=== PATIENT | female | born 1950 | race Caucasian/White ===

== ENCOUNTER → 2017-08-10 12:13 | Outpatient (CLI) | payer MEDICARE, SELFPAY ==
--- NOTE | 2017-08-10 12:30 | RAD_ITS ---
STUDY: X-RAY - LUMBAR SPINE REASON FOR EXAM: Female, 66 years old. Low back pain TECHNIQUE: 5 view(s) of the lumbar spine were obtained. COMPARISON: 2013 FINDINGS: Normal lumbar lordosis. There is no substantial scoliosis. There is a normal alignment of the vertebrae. There is diffuse demineralization with multi-level endplate spondylosis. There is multi-level degenerative disc disease with multi-level disc space narrowing. There is no demonstrated fracture. No evidence of previous tubal ligation RAD/L/S Spine Min 4 Views IMPRESSION: Degenerative changes of the spine, as detailed above. Electronically Signed: Feliz Kelly MD at 8:33 EDT , Service support ,
== END ==
PROVIDERS: Family Provider Family Medicine; PCP Family Medicine; Visit Provider Nurse Practitioner Family
DX: M51.36 Other intervertebral disc degeneration, lumbar region (principal); M48.061 Spinal stenosis, lumbar region without neurogenic claudication; M54.9 Dorsalgia, unspecified
CPT/HCPCS: 72110

== ENCOUNTER → 2017-09-26 10:58 | Outpatient (CLI) | payer MEDICARE, SELFPAY ==
--- NOTE | 2017-09-26 11:20 | RAD_ITS ---
STUDY: X-RAY - PELVIS AND RIGHT HIP REASON FOR EXAM: Female, 67 years old. Injury. Worsening right hip pain. TECHNIQUE: Radiological exam, hip, unilateral, with pelvis when performed; 2 or 3 views. COMPARISON: Right hip, April 10, 2014. FINDINGS: There is a non-specific bowel gas pattern. Normal visualized soft tissue structures. There is surgical clips in the pelvis consistent with tubal ligation. Phleboliths are noted. Normal bilateral iliac wings, sacroiliac joints and visualized sacrum. Normal bilateral superior and inferior pubic rami. Normal pubic symphysis. Normal bilateral ischial tuberosities. Normal visualized right femoral head. There is osteoarthritic spur formation of the right acetabular rim. There is mild articular joint space narrowing of the right hip. RAD/Hip 2-3 Views with Pelvis IMPRESSION: Stable degenerative changes of the right hip when compared to April 10, 2014. Electronically Signed: Dylon Goins DO at 17:05 EDT Tel [phone], Service support ,
== END ==
PROVIDERS: Family Provider Family Medicine; PCP Family Medicine; Visit Provider Nurse Practitioner Family
DX: M25.551 Pain in right hip (principal)
CPT/HCPCS: 73502

== ENCOUNTER 2018-09-17 17:21 | Emergency (ER) | payer MEDICARE, SELFPAY ==
[2018-09-17 17:22] VITALS: BP 151/115; PULSE 115; RESP 16; TEMP 36.7; O2SAT 97; BMI 30.9
--- NOTE | 2018-09-17 17:37 | CT_ITS ---
STUDY: CT ABDOMEN AND PELVIS WITH CONTRAST REASON FOR EXAM: Female, 68 years old. Cramping for 4 days. RADIATION DOSAGE (If Supplied By Facility): CTDIvol = ( 15.19 ) mGy, DLP = ( 1111.33 ) mGycm TECHNIQUE: Transaxial images were obtained from the dome of the diaphragm to the symphysis pubis without oral contrast. 100 IV Isovue 300 was administered. Sagittal and coronal images were reconstructed. Individualized dose optimization techniques were used for this CT. COMPARISON: None. FINDINGS: The visualized lung bases are unremarkable. The visualized portions of the heart are within normal limits. Scattered calcified granulomata of the liver is noted. Normal gallbladder and extrahepatic biliary system. There is a benign calcified granuloma of the spleen. Normal pancreas. Normal bilateral adrenal glands. Normal right kidney. Normal left kidney. Normal visualized stomach. There is noted hyperemia and mild dilatation of the central small bowel areas of wall thickening and surrounding inflammatory stranding as seen on coronal series 601 image 44. Normal colon. The appendix is visualized and appears normal. Normal abdominal aorta. Normal inferior vena cava. Normal retroperitoneum. Normal urinary bladder. There is atrophy of the uterus. There is a small umbilical hernia containing fat. There are diffuse degenerative changes of the visualized lumbar spine. CT/Abdomen/Pelvis W IV Cont ONLY IMPRESSION: 1. Central small bowel mild dilatation, hyperemia and wall thickening with surrounding fluid layering consistent with underlying inflammatory process with enteritis not excluded. No evidence of vascular compromise or bowel wall emphysema to suggest ischemia. Component of inflammatory bowel syndrome is also a consideration, clinically correlate. No evidence of acute obstruction. Electronically Signed: Miguelito Esparza DO at 20:07 EDT , Service support ,
--- NOTE | 2018-09-17 17:38 | ED.VISSUMM ---
- ER Visit Summary Date of Service: 09/17/18 Chief Complaint: Abdominal pain History of Present Illness: The patient is a 68 F who presents with abdominal pain. Is been ongoing for 3 days. She describes a continuous cramping in her abdomen diffusely. Is worse on the right side. She has nausea without vomiting. She is also had a lot of diarrhea associated with this. She describes them as loose stools. Denies urinary symptoms. She is supposed to have a colonoscopy on Tuesday with Dr. Curtis. This is for screening purposes only. She denies any fevers. No history of abdominal surgeries. Physical Examination: Vital signs reviewed. HEENT exam unremarkable. Heart is tachycardic and regular rhythm without murmurs. Lungs are clear to auscultation. Abdomen is soft with right-sided tenderness. There is no guarding or rebound tenderness. Extremities reveal no edema. Skin exam normal. Neurologic exam normal. Test Results: Laboratory studies are normal except for creatinine 1.17, alkaline phosphatase of 126. CT scan of the abdomen pelvis with IV contrast shows mild small bowel dilatation with an enteritis being in the differential. Emergency Department Course and Treatment: Patient was given morphine and Zofran and feels much better. Feel that her clinical symptoms and CAT scan are consistent with a gastroenteritis. I do not feel that this is an inflammatory bowel disease. Patient will be given Bentyl and Zofran ODT for home. She will need to call tomorrow and see if they would still would like to do her colonoscopy on Tuesday. Treatment Plan: [] Disposition: Discharge Impression: Gastroenteritis This note was generated with [employer] dictation software. It may contain incorrect words, spelling, and punctuation that were not noted in review of the chart prior to signing ED Disposition - Plan for ED Patient: Referrals: Luiz Gomez DO [Primary Care Provider] -
[2018-09-17] MEDS: 0.9% Normal Saline 1,000 ML 1000 ML IV (17:58)
[2018-09-17] MEDS: Ondansetron 4 MG/2 ML Vial IV (17:58)
[2018-09-17] MEDS: Morphine 4 MG/ML Syringe IV (17:58)
[2018-09-17 17:59] LABS: Absolute Lymphocyte Count 1.07 X10^3/ul (0.83-4.51); Absolute Neutrophil Count 5.1 X10^3/uL (2.0-7.7); Eosinophil# 0.08 X10^3/uL; Eosinophils% 1.2 % (0-5); Lymphocyte # 1.07 X10^3/ul (4.0); Lymphocyte % 16.1 % (19-41); Mean Corpuscular Hgb 34.1 pg (27.0-32.0); Mean Corpuscular Volume 100.2 fL (81-99); Mean Platelet Vol. 10.3 fl (6.2-12.0); Monocyte# 0.42 X10^3/uL; Monocyte% 6.3 % (0-10); Neutrophil # 5.06 X10^3/uL (2.7-7.7); Neutrophil % 76.4 % (47-70); POSITIVE COUNT NO; POSITIVE DIFFERENTIAL NO; POSITIVE MORPHOLOGY NO; Platelet Count 247 K/mm3 (150-450); RBC Distribution Width CV 12.8 % (11.6-14.6); RBC Distribution Width SD 46.3 fl (35.1-43.9); Red Blood Count 4.69 M/mm3 (4.2-5.4); White Blood Count 6.6 K/mm3 (4.4-11.0)
[2018-09-17 18:16] LABS: AST(SGOT) 9 U/L (15-37); Alanine Aminotransfer ALT/SGPT 15 U/L (13-56); Albumin, Serum 3.9 g/dL (3.2-5.0); Alkaline Phosphatase 126 U/L (45-117); Anion Gap 9 (5-15); BUN 15 mg/dL (7-18); BUN/Creat Ratio 12.8 RATIO (10-20); Bilirubin, Direct 0.14 mg/dL (0.00-0.30); Calcium,Total 9.4 mg/dL (8.5-10.1); Chloride 106 mmol/L (98-107); Creatinine, Serum 1.17 mg/dL (0.55-1.02); EST Glomerular Filtration Rate 49 mL/min (>60); Est Glom Filt Rate - Afr Amer 60 mL/min (>60); Estimated Creatinine Clearance 42.56 ml/min; Globulin 3.2 g/dL (2.2-4.2); Glucose 97 mg/dL (74-106); Lipase 76 U/L (73-393); Potassium 4.1 mmol/L (3.5-5.1); Protein, Total 7.1 g/dL (6.4-8.2); Sodium Level 142 mmol/L (136-145)
[2018-09-17 18:24] VITALS: BP 142/94; PULSE 96; RESP 16; TEMP 36.6; O2SAT 92
--- NOTE | 2018-09-17 20:16 | ED.DEP ---
ED Disposition - Plan for ED Patient: Disposition: Home or Assisted Living Instructions: ED Gastroenteritis Non Infec Prescriptions: Ondansetron [Zofran Odt] 4 mg PO Q8H PRN PRN #10 tab PRN Reason: Nausea Dicyclomine HCl [Bentyl] 20 mg PO TIDAC #20 cap Referrals: Luiz Gomez DO [Primary Care Provider] -
[2018-09-17 20:37] VITALS: RESP 18
== END 2018-09-17 20:38 | disposition home or self-care (01) ==
PROVIDERS: Emergency Provider Emergency Medicine; Family Provider Family Medicine; PCP Family Medicine
DX: K52.9 Noninfective gastroenteritis and colitis, unspecified (principal)
CPT/HCPCS: 74177; 80048; 80076; 83690; 85025; 96361; 96374; 96375; 99283; J7030; Q9967; A4216; J2405

== ENCOUNTER → 2018-09-19 13:21 | Outpatient (CLI) | payer MEDICARE, SELFPAY ==
[2018-09-19 12:44] VITALS: BMI 30.9
[2018-09-19 13:45] LABS: Erythrocyte Sedimentation Rate 4 mm/hr (0-30)
[2018-09-19 13:48] LABS: Absolute Lymphocyte Count 0.95 X10^3/ul (0.83-4.51); Absolute Neutrophil Count 3.3 X10^3/uL (2.0-7.7); Basophil# 0.01 X10^3/uL; Basophil% 0.2 % (0-1); Eosinophil# 0.06 X10^3/uL; Eosinophils% 1.3 % (0-5); Hematocrit 43.9 % (37-47); Hemoglobin 14.9 g/dl (12.0-15.0); Lymphocyte # 0.95 X10^3/ul (4.0); Lymphocyte % 20.1 % (19-41); Mean Corp Hgb Conc 33.9 g/gl (32-36); Mean Corpuscular Hgb 33.9 pg (27.0-32.0); Mean Corpuscular Volume 99.8 fL (81-99); Mean Platelet Vol. 10.2 fl (6.2-12.0); Monocyte# 0.39 X10^3/uL; Monocyte% 8.3 % (0-10); Neutrophil # 3.31 X10^3/uL (2.7-7.7); Neutrophil % 70.1 % (47-70); Platelet Count 236 K/mm3 (150-450); RBC Distribution Width CV 12.5 % (11.6-14.6); White Blood Count 4.7 K/mm3 (4.4-11.0)
[2018-09-19 13:51] LABS: POSITIVE COUNT NO; POSITIVE DIFFERENTIAL NO; POSITIVE MORPHOLOGY NO
== END ==
PROVIDERS: Family Provider Family Medicine; PCP Family Medicine; Visit Provider Surgery
DX: R19.7 Diarrhea, unspecified (principal)
CPT/HCPCS: 36415; 85025; 85652; 86140

== ENCOUNTER → 2018-09-20 | Outpatient (CLI) | payer MEDICARE, SELFPAY ==
[2018-09-19 12:44] VITALS: BMI 30.9
== END | disposition home or self-care (01) ==
LOC: PAVLAB 15:28
PROVIDERS: Family Provider Family Medicine; PCP Family Medicine; Visit Provider Surgery
DX: A04.72 Enterocolitis due to Clostridium difficile, not specified as recurrent (principal); R19.7 Diarrhea, unspecified
CPT/HCPCS: 82274; 83630; 87177; 87209; 87493; 87506

== ENCOUNTER 2018-10-10 05:58 | Day surgery (SDC) | payer MEDICARE, SELFPAY ==
[2018-09-19 12:44] VITALS: BMI 30.9
--- NOTE | 2018-10-09 06:33 | HP.PCM_ITS ---
Problem List (1) Screening for intestinal cancer Status: Acute History and Physical Date of Admission: 10/10/18 68-year-old female. Earlier in September she was scheduled to have a screening colonoscopy. Just prior to that intended date however on September 17, 2018 she presented to the emergency room with profuse severe diarrhea. The following note highlights that process. 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 Is patient in pain?: Yes (RUQ abd) Pain scale (1-10): 8 Allergies No Known Allergies Allergy (Verified 09/19/18 12:44) Medications Dicyclomine HCl [Bentyl] 20 mg PO TIDAC #20 cap 09/17/18 [Rx Confirmed 09/19/18] Ondansetron [Zofran Odt] 4 mg PO Q8H PRN PRN #10 tab 09/17/18 [Rx Confirmed 09/19/18] PFSH Medical History Arthritis (Acute) Back problem (Acute) Nausea & vomiting (Acute) Surgical History S/P nasal polypectomy (Acute) Family History Mother Colon cancer Social History Smoking Status: Never smoker alcohol intake: current alcohol intake frequency: a few times a month HPI HPI HPI: JERMAIN ROBLES, is a 68 F who presents to the office today for surgical consultation regarding intractable diarrhea. The patient is referred via the emergency room and her primary care is Dr. Luiz Gomez and a written copy of my surgical consult recommendations will return to them. 58-year-old female presented to the emergency room on September 17, 2018. She had had a 3-day history of profuse severe diarrhea with sharp abdominal crampy pain. She was diagnosed there with viral gastritis. No stool mass was obtained. Her white count was 6.6 with a hemoglobin elevated at 16 hematocrit 47 platelet count 247,000 with 76% neutrophils. CT scan was obtained suggesting central small bowel dilatation hyperemia and wall thickening suggesting underlying inflammatory process and enteritis is not excluded. Clinical correlation for a possible inflammatory bowel syndrome. The patient states that her abdominal pain is somewhat improved but that she is still quite symptomatic. It is of note that she was supposed to be scheduled today for routine outpatient open access screening colonoscopy. Her diet has m arkedly diminished. She feels like she is getting enough fluid. She claims her stool is dark. She had a colonoscopy 5 years ago which by her report was unremarkable. She has a family history with a mother who had colon cancer. HPI HPI HPI: JERMAIN ROBLES, is a 68 F who presents to the office today for ROS General General: Yes weight change; no appetite, fatigue, colon cancer, breast cancer or weakness HEENT HEENT: No difficulty swallowing, eye injury, eye surgery, swollen glands or hoar seness Endo Endocrine: No thyroid disease, diabetes mellitus, thyroid cancer, Hair loss, heat intolerance or cold intolerance Skin Skin: No rash or changing moles Breast Breast: No left breast lump, right breast lump, nipple discharge, breast pain, abnormal mammogram, abnormal US or breast enlargement Musc Musculoskeletal: Yes back problems and arthritis; no rheumatoid arthritis, gout or joint pain Cardio Cardiovascular: No murmur, pacemaker, heart disease, atrial fibrillation, high blood pressure, heart attack, heart stent, palpitations, shortness of breat with exertion or chest pain Psych Psychiatric: No depression, anxiety or hearing voices Resp Respiratory: No shortness of breath, No sleep apnea, No cough, No COPD, No asthma, No emphysema, No wheezing Gastro Gastrointestinal: Yes abdominal pain, Yes nausea or vomiting, Yes diarrhea, No constipation, No blood in stool, No acid reflux, No hemorrhoids, No ulcers, No gallbladder problem, No black,tarry stools Kody Hematologic: No blood thinners, No blood disorders, No bleeding, No anemia, No blood clots Neuro Neurologic: No system reviewed and no additional complaints, except as docu, No as per HPI, No abnormal walking, No abnormal hearing, No abnormal movements, No abnormal speech, No behavioral changes, No burning sensations, No confusion, No seizure-like activity, No unsteadiness, No dizziness, No localized weakness, No frequent falls, No headache(s), No lack of coordination, No loss of vision, No memory loss, Yes numbness, No other visual disturbances, No radiating pain, No restless legs, No sensory deficit, No fainting, Yes tingling, No tremor(s), No weakness, No other Exam Const General: cooperative, healthy appearing, no acute distress Nutritional Appearance: obese Orientation: alert, awake, oriented x3 HENMT Head: normal to inspection Chest Breast Palpation: No nipple discharge Resp Effort & Inspection: normal respiratory effort Auscultation: clear to auscultation bilaterally Cardio Rate: regular rate Rhythm: regular rhythm Heart Sounds: no murmurs GI Palpation: soft, no hepatosplenomegaly Auscultation: normal bowel sounds Other: Distended, tender to palpation particularly right mid abdomen with mild guarding, no rebound Neuro Cognition: normal cognition Extrem General: no calf tenderness bilaterally Psych Affect: normal affect Assessment & Plan Problems 1. Generalized abdominal pain R10.84 2. Diarrhea, unspecified type R19.7 Plan The source of this patient's abdominal pain diarrhea is unexplained. She was hemoconcentrated on her ER visit. I have explained to the patient and her the significant importance of increasing her fluid intake. I have discussed electrolyte balance solutions. I suggested that she consider taking Ensure clear. This point I do not want to proceed with a bowel prep and colonoscopy. She did not have stool checked for analysis. I believe it is important to check a stool for O&P culture and sensitivity and C. difficile. I also recommend that we obtain a sed rate and a CRP. The patient does not have any family history of inflammatory bowel disease. Colonoscopy will be deferred at the moment. The patient will provide us daily updates as we work our way through the diagnostic process. She is instructed that if this is indeed a viral gastroenteritis it simply will need time to resolve. If we detect other than we can treat appropriately. We will continue with her care. I appreciate the opportunity of assisting with her surgical management CC: Dr. Luiz Curtis M.D., F.A.C.S. Orders Orders: CBC W/Diff, Automated Today R19.7 Erythrocyte Sed Rate Today R19.7 CRP Today R19.7 ENTERIC PATHOGEN PANEL STOOL Today A04.72, R19.7 Ova and Parasites Today R19.7 CDIFF (Molecular) Today R19.7 Stool Occult Blood iFOB Today R19.7 Stool Lactoferrin/WBC Today R19.7 Coding Level of Care Code Detailed, Low Diagnoses Generalized abdominal pain R10.84 ??Abdominal location: generalized Diarrhea, unspecified type R19.7 ??Diarrhea type: unspecified type 09/19/18 1323 <Electronically signed by Behzad Curtis MD> Date Behzad Curtis MD Cosigner Signature: Date (if applicable) CC: Luiz Gomez DO ~ Because of the profuse diarrhea she was hemoconcentrated rather actively dehydrated. The screening exam was postponed. As of September 20, 2018 stool analysis was unremarkable for routine enteric pathogens. She was positive for fecal WBC lactoferrin. C. difficile was negative. Stool occult blood was positive. She has a family history with a mother who had colon cancer. Her previous colonoscopy was July 13, 2013. Hemorrhoids were noted a tortuous colon and a 3 mm polyp was seen in the ascending colon. On biopsy this was simple lymphoid aggregates. With conservative measures she has improved from her episode of diarrhea. Was felt to have been viral in origin. She now presents in a much more stable condition. We will proceed with screening colonoscopy. She is aware of the technique, benefits, risks, alternatives. We will proceed as noted. Behzad Curtis M.D., F.A.C.S. 1 week ago weekend she was still having some right lower quadrant pain and irregular loose stools. But over the past week that is resolved. She has been able to tolerate her bowel prep. Her clinical examination today remains quite benign. We will proceed with planned colonoscopy. We will try to take a good evaluation of the ileocecal area and if possible terminal ileum. Behzad Curtis M.D., F.A.C.S.
[2018-10-10] VITALS (13 sets, daily range): BP systolic 66–140; BP diastolic 39–106; PULSE 76–94; RESP 14–16; TEMP 36.3–36.6; O2SAT 85–100; BMI 29.1
--- NOTE | 2018-10-10 07:00 | COLBX_PTH ---
PATIENT: JERMAIN ROBLES LOC: EN U#:[id number] AGE/SX: 68/F ROOM: RE10/10/[address]: Dr. Behzad Curtis MD : 1950 BED: DIS: 10/10/2018 SPEC #: [id number] RECD: 10/10/18 10:05 STATUS: RONNI AMBROSIO #: [id number] WILLIS: 10/10/18 07:[address]: Behzad Curtis DEPT: SURGICAL PATHOLOGY RECD BY: Patrick Phipps ENTERED: 10/10/18 10:35 SP TYPE: COLON BX OTHR DR: Dr. Luiz Gomez DO Tissues: COLON BIOPSY Procedures: Surgery Specimen Level IV HEADER OPERATION: Colonoscopy - open access (MOD) PRE-OP DIAGNOSIS: Screening TISSUE SUBMITTED: Random colonic biopsies MICROSCOPIC DIAGNOSIS Colon, random biopsy: Fragments of colonic mucosa, no pathologic diagnosis. SJ:joann 10/11/18 MICROSCOPIC DESCRIPTION Slides are reviewed. GROSS DESCRIPTION Received in fixative is one container labeled with the patient's name and designated random colon biopsy. The specimen consists of multiple irregular fragments of light friedman soft tissue that in aggregate measure 0.7 x 0.6 x 0.1 cm. The specimen is totally submitted in one cassette. / AM:joann 10/10/18 TC:4 CPT: 45912
--- NOTE | 2018-10-10 07:27 | OP.ENDO_ITS ---
10/10/2018 Luiz Gomez [address] [facility] [place] [address] Re : Colonoscopy procedure for Erica Akhtarh Dear Dr. Gomez This procedure was performed on Wednesday, October 10, 2018. My impressions and recommendations are as follows: Impressions : - Non-thrombosed external hemorrhoids, non-thrombosed internal hemorrhoids and internal hemorrhoids that prolapse with straining, but spontaneously regress to the resting position (Grade II) found on digital rectal exam. - Diverticulosis in the sigmoid colon and in the descending colon. - The examination was otherwise normal. - Biopsies were taken with a cold forceps from the entire colon for evaluation of microscopic colitis. The patient had to cancel a previous colonoscopy because of diarrhea felt to be small bowel enteritis. I was not able to canculate the terminal ileum secondary to patient discomfort. Random biopsies were taken of the colon to not miss this as a potential etiology to diarrhea. Recommendations : - Discharge patient to home. - Resume previous diet. - Continue present medications. - Telephone my office for pathology results in 1 week. - Repeat colonoscopy in 5 years for surveillance. I will encourage her to contact our office if her diarrhea recurrs or abdominal pain does not completely valentín. My findings are described in the full procedure note, which is enclosed. If I can be of further assistance, please feel free to contact me at Doctor phone number(s): Work: . Sincerely, Behzad Curtis MD 10/10/2018 7:27:01 AM This report has been signed electronically.
== END 2018-10-10 08:25 | disposition home or self-care (01) ==
LOC: EN 06:02 → AC 06:17
PROVIDERS: Family Provider Family Medicine; PCP Family Medicine; Referring Provider Surgery; Visit Provider Surgery
PROC: 0DJD8ZZ Inspection of Lower Intestinal Tract, Via Natural or Artificial Opening Endoscopic (ICD-10-PCS; CPT 45378; principal; 2018-10-10 06:55)
DX: Z12.11 Encounter for screening for malignant neoplasm of colon (principal); K64.1 Second degree hemorrhoids; K57.30 Diverticulosis of large intestine without perforation or abscess without bleeding; Z80.0 Family history of malignant neoplasm of digestive organs; M19.90 Unspecified osteoarthritis, unspecified site
CPT/HCPCS: G0105; 88305; 99152; 99153; J7120

== ENCOUNTER 2019-06-01 09:14 | Emergency (ER) | payer MEDICARE, SELFPAY ==
[2018-10-10 06:20] VITALS: BMI 29.1
[2019-06-01] VITALS (7 sets, daily range): BP systolic 134–171; BP diastolic 73–97; PULSE 59–73; RESP 14–20; TEMP 36.6; O2SAT 90–100; BMI 32.2
--- NOTE | 2019-06-01 09:21 | RAD_ITS ---
STUDY: X-RAY CHEST REASON FOR EXAM: Female, 68 years old. CP since last night TECHNIQUE: Single AP portable view of the chest. COMPARISON: None. FINDINGS: EKG electrodes are seen. The lungs are clear and expanded. There is no demonstrated pleural abnormality. Normal size heart. Normal mediastinum and sharon. Normal visualized pulmonary arteries. There is atherosclerotic tortuosity of the aortic arch and descending thoracic aorta. There are diffuse degenerative changes of the visualized thoracic spine. Normal visualized ribs, clavicles, and shoulders. There is no demonstrated abnormality of the visualized soft tissue structures of the upper abdomen. RAD/Chest 1 View (Portable) IMPRESSION: No acute abnormality is seen. Electronically Signed: Kenneth Hernández, at 9:53 EST , Service support ,
--- NOTE | 2019-06-01 09:21 | EKG12_ITS ---
Test Reason : REPEAT Blood Pressure : / mmHG Vent. Rate : 064 BPM Atrial Rate : 064 BPM P-R Int : 190 ms QRS Dur : 082 ms QT Int : 418 ms P-R-T Axes : 036 -01 030 degrees QTc Int : 431 ms Normal sinus rhythm Normal ECG Confirmed by JACQUELYN HUTCHINSON MD ([id number]), scientific publications editor KATIE ALEXANDER ([id number]) on 06/04/2019 12:12:59 PM Referred By: BARRY Confirmed By:JACQUELYN HUTCHINSON MD
--- NOTE | 2019-06-01 09:23 | ED.VIS.GEN ---
History of Present Illness Chief Complaint: Chest Pain Informant: Patient Onset: Yesterday Context: Gradual Onset Timing: Continuous Current Severity: Moderate Maximum Severity: Moderate Narrative: Patient presents with chest pain that radiates through to her back. Patient states the pain started last evening. She had difficulty finding a position of comfort last night. She actually points to the epigastric region and describing the area of pain. She tried taking an antacid pill along with Pepto last night without improvement. She denies shortness of breath or cough. She has no known cardiac history. She denies history of pancreatitis. - Past Medical History (1) GERD (gastroesophageal reflux disease) Status: Chronic (2) Arthritis Status: Chronic Past Medical History - Allergies and Home Meds Allergies/Adverse Reactions: Allergies No Known Allergies Allergy (Verified 06/01/19 09:21) Primary Care Physician: Luiz Gomez DO [Primary Care Provider] - Prior records reviewed: Yes Lives: Spouse/ Significant Other Smoking Status: Never smoker Review of Systems General: Denies: Chills, Fever Eyes: Denies: Visual changes - bilaterally ENT: Denies: Bilateral ear pain Cardiovascular: Reports: Chest pain Respiratory: Denies: Dyspnea, Cough Gastrointestinal: Reports: Abdominal pain. Denies: Nausea, Vomiting, Diarrhea Genitourinary: Denies: Dysuria Musculoskeletal: Denies: Back pain, Extremity Pain Skin: Denies: Rash Neurological: Denies: Headache Hematologic: Denies: Easy bruising, Easy bleeding Allergy: Denies: Uticaria Physical Exam Vital Signs/Narrative: Vital Signs Temp Pulse Resp BP Pulse Ox 06/01/19 09:15 97.9 F 72 20 H 171/97 H 100 Inital Vital Signs reviewed: Yes General: Well nourished, Well developed Head: Normocephalic ENT: Moist mucous membranes Neck: Supple Cardiovascular: Regular rate, Regular rhythm Respiratory: No distress, CTA bilaterally Abdomen: Soft, Tender - Tenderness in the epigastric region., Hypoactive bowel sounds. Negative for: Guarding, Rebound tenderness Extremities: Nontender Skin: Normal color Neurological: Alert, Oriented x3 Psychological: Normal affect Diagnostic/Tx/Re-eval Impressions Chest X-Ray 06/01/19 09:21 IMPRESSION: No acute abnormality is seen. Electronically Signed: Kenneth Hernández, at 9:53 EST , Service support , 06/01/19 09:21 Chest 1 View (Portable) [RAD] Stat Laboratory Results 06/01/19 06/01/19 06/01/19 09:15 09:15 12:25 WBC 5.9 RBC 4.33 Hgb 14.5 Hct 42.7 MCV 98.6 MCH 33.5 H MCHC 34.0 RDW Std Deviation 42.7 RDW Coeff of Gertrudis 11.7 Plt Count 262 MPV 10.6 Immature Gran % (Auto) 0.300 Neut % (Auto) 67.8 Lymph % (Auto) 23.6 [place] % (Auto) 6.1 Eos % (Auto) 1.9 Baso % (Auto) 0.3 Absolute Neuts (auto) 4.0 Absolute Lymphs (auto) 1.39 Nucleated RBC % 0 Sodium 137 Potassium 4.1 Chloride 103 Carbon Dioxide 26.0 Anion Gap 8 BUN 21 H Creatinine 1.32 H Estim Creat Clear Calc 37.72 Est GFR (MDRD) Af Amer 52 L Est GFR (MDRD) Non-Af 43 L BUN/Creatinine Ratio 15.9 Glucose 118 H Calcium 9.1 Total Bilirubin 0.60 Direct Bilirubin 0.07 AST 14 L ALT 16 Alkaline Phosphatase 73 Troponin I < 0.015 < 0.015 Total Protein 7.5 Albumin 4.0 Globulin 3.5 Lipase 122 - EKG Initial EKG Interpretation: Sinus Rhythm - Sinus at 75 with no acute ischemia Follow-up EKG Interpretation: Sinus Rhythm - Sinus at 64 with no acute ischemia - Medical Decision Making Patient was initially given morphine and Zofran. On repeat evaluation she reported minimal improvement. Pain seems to continue to be localized in the epigastrium. She is given a GI cocktail, Protonix, and 0.5 mg of Dilaudid. On repeat evaluation she states that helped her pain. 3-hour rule out was obtained and repeat troponin and EKG are unremarkable. Patient be started on Protonix. She is known to Dr. Curtis and will follow up with him for a scope if she is not improving. ED Disposition - Plan for ED Patient: Disposition: Home or Assisted Living Diagnosis: Epigastric pain Instructions: EPIGASTRIC PAIN (Uncertain cause) Prescriptions: Pantoprazole Sodium [Protonix] 40 mg PO DAILY #30 tab Transmission Status: Pending to [id number] Referrals: Luiz Gomez DO [Primary Care Provider] - 1 Week
[2019-06-01] MEDS: Aspirin 325 MG Tablet PO (09:35)
[2019-06-01] MEDS: Ondansetron 4 MG/2 ML Vial IV (09:35)
[2019-06-01] MEDS: 0.9% Normal Saline 1,000 ML 150 ML IV (09:36)
[2019-06-01] MEDS: Morphine 4 MG/ML Syringe IV (09:36)
[2019-06-01 09:39] LABS: Absolute Lymphocyte Count 1.39 X10^3/uL (0.83-4.51); Basophil# 0.02 X10^3/uL; Basophil% 0.3 % (0-1); Eosinophil# 0.11 X10^3/uL; Eosinophils% 1.9 % (0-5); Hematocrit 42.7 % (37-47); Hemoglobin 14.5 g/dL (12.0-15.0); Lymphocyte # 1.39 X10^3/ul (4.0); Lymphocyte % 23.6 % (19-41); Mean Corpuscular Hgb 33.5 pg (27.0-32.0); Mean Corpuscular Volume 98.6 fL (81-99); Mean Platelet Vol. 10.6 fl (6.2-12.0); Monocyte# 0.36 X10^3/uL; Monocyte% 6.1 % (0-10); NRBC Flagged by Analyzer 0 % (0-5); Neutrophil % 67.8 % (47-70); Platelet Count 262 K/mm3 (150-450); RBC Distribution Width CV 11.7 % (11.6-14.6); RBC Distribution Width SD 42.7 fl (35.1-43.9); Red Blood Count 4.33 M/mm3 (4.2-5.4); White Blood Count 5.9 K/mm3 (4.4-11.0)
[2019-06-01 09:56] LABS: AST(SGOT) 14 U/L (15-37); Alanine Aminotransfer ALT/SGPT 16 U/L (13-56); Alkaline Phosphatase 73 U/L (45-117); Anion Gap 8 (5-15); BUN 21 mg/dL (7-18); BUN/Creat Ratio 15.9 RATIO (10-20); Bilirubin, Direct 0.07 mg/dL (0.00-0.30); Calcium,Total 9.1 mg/dL (8.5-10.1); Chloride 103 mmol/L (98-107); Creatinine, Serum 1.32 mg/dL (0.55-1.02); EST Glomerular Filtration Rate 43 mL/min (>60); Est Glom Filt Rate - Afr Amer 52 mL/min (>60); Estimated Creatinine Clearance 37.72 ml/min; Globulin 3.5 g/dL (2.2-4.2); Glucose 118 mg/dL (74-106); Lipase 122 U/L (73-393); Potassium 4.1 mmol/L (3.5-5.1); Protein, Total 7.5 g/dL (6.4-8.2); Sodium Level 137 mmol/L (136-145)
[2019-06-01] MEDS: Mag Hydrox/Al Hydrox/Simeth 30 ML UDC PO (10:36)
[2019-06-01] MEDS: HYDROmorphone 0.5 MG/0.5 ML SYRINGE IV ×2 (10:36→12:22)
--- NOTE | 2019-06-01 12:05 | EKG12_ITS ---
Test Reason : CP Blood Pressure : / mmHG Vent. Rate : 075 BPM Atrial Rate : 075 BPM P-R Int : 174 ms QRS Dur : 080 ms QT Int : 402 ms P-R-T Axes : 051 016 047 degrees QTc Int : 448 ms Normal sinus rhythm Normal ECG Confirmed by JACQUELYN HUTCHINSON MD ([id number]), sound editor KATIE ALEXANDER ([id number]) on 06/04/2019 12:13:12 PM Referred By: JAMES Confirmed By:JACQUELYN HUTCHINSON MD
== END 2019-06-01 13:48 | disposition home or self-care (01) ==
PROVIDERS: Emergency Provider Emergency Medicine; PCP Family Medicine
DX: R10.13 Epigastric pain (principal); K21.9 Gastro-esophageal reflux disease without esophagitis; M19.90 Unspecified osteoarthritis, unspecified site
CPT/HCPCS: 36415; 71045; 80048; 80076; 83690; 84484; 85025; 93005; 96361; 96365; 96375; 96376; 99284; J7030; A4216; J2405

== ENCOUNTER 2019-06-02 04:48 | Day surgery (SDC) | payer MEDICARE, SELFPAY ==
[2019-06-01 09:15] VITALS: BMI 32.2
[2019-06-02] VITALS (15 sets, daily range): BP systolic 104–154; BP diastolic 65–88; PULSE 77–97; RESP 16–21; TEMP 36.2–36.8; O2SAT 78–99; BMI 32.7
--- NOTE | 2019-06-02 04:59 | CT_ITS ---
ACR Level 3 findings have been noted. An addendum which confirms receipt of the report will follow. HISTORY: RIGHT SIDED FLANK PAIN TODAY. EPIGASTRIC PAIN YESTERDAY. SOME NAUSEA. CHEST PAIN, SOB. TECHNIQUE: Helically acquired images were obtained of the abdomen and pelvis without oral or IV contrast. A radiation dose optimization technique was used for this scan. COMPARISON: September 17, 2018 FINDINGS: # of images incl. paperwork: 474 LUNG BASES: Dependent basilar atelectasis. A bulla anteriorly within the left iliac/left iliac lingula adjacent to the heart Tiny bilateral pleural effusions. A tiny pericardial effusion. Minimal degenerative disc disease and some facet arthropathy within the lower lumbar spine CT abdomen: Some degenerative disc disease. 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 Series 2 image 42 suggests a possible cystic duct stone. On the coronal series this is series 601, image 50 The common bile duct is slightly prominent. Within the pancreatic head, I measure the diameter of the common bile duct to be 13 mm. No calcified choledocholithiasis is perceived within the common bile duct. Liver, spleen, pancreas, and adrenal glands are normal. The kidneys are normal. The aorta is normal. There is no intra-or extrahepatic biliary ductal dilatation. CT pelvis: No ascites is present. The the uterus is atrophic. Tubal ligation clips are present bilaterally. The ovaries are not enlarged. The appendix is normal. Series 2 image 123. The bladder is normal. Bowel gas pattern is normal. CT/Abdomen/Pelvis without Cont IMPRESSION: Acute cholecystitis with cholelithiasis and a calcified stone within the cystic duct measuring 4 mm, consistent with choledocholithiasis. Although the common bile duct is distended to 13 mm within the pancreas, no common bile duct gallstones are perceived. Individualized dose optimization techniques were used for this CT. at 0617 Reported and signed by: Darrel Sutton MD Electronically Signed: Darrel Sutton MD at 6:16 EST Tel , Service support ,
--- NOTE | 2019-06-02 05:00 | ED.VIS.GEN ---
History of Present Illness Chief Complaint: Abd Pain Informant: Patient Narrative: Stated she was seen yesterday in the emergency department for epigastric abdominal pain. Discharged on Protonix. Given a GI cocktail and narcotics in the department with good relief of symptoms. She had a negative cardiac work-up at that time as it was radiating to the chest. No over the last 9 hours she has had significant right-sided flank pain. Is a sharp stabbing pain. It seems to be rating from the epigastrium over to the right flank. No history of gallbladder stones. No previous abdominal surgeries. No vomiting or diarrhea. She has had some nausea with this. No blood in her urine. She is never had a kidney stone. Current severity is moderate. - Past Medical History (1) Abdominal pain Status: Acute (2) Diarrhea Status: Acute (3) Screening for intestinal cancer Status: Acute (4) Arthritis Status: Chronic (5) GERD (gastroesophageal reflux disease) Status: Chronic Past Medical History - Allergies and Home Meds Allergies/Adverse Reactions: Allergies No Known Allergies Allergy (Verified 06/02/19 04:49) Prior records reviewed: Yes Past Medical History: - - See problem list Surgical History: no surgical history Lives: With Family Smoking Status: Never smoker Alcohol: None Drugs: None Review of Systems General: Denies: Chills, Fever, Sweats Eyes: Denies: Visual changes - bilaterally, Diplopia ENT: Denies: Rhinorrhea, Sore throat Cardiovascular: Denies: Chest pain, Palpitations Respiratory: Denies: Dyspnea, Cough, Dyspnea on exertion Gastrointestinal: Reports: Abdominal pain, Nausea. Denies: Vomiting, Diarrhea, Melena, Hematochezia Genitourinary: Denies: Dysuria, Hematuria, Frequency Musculoskeletal: Denies: Back pain, Extremity Pain Skin: Denies: Rash, Wounds Neurological: Denies: Headache, Weakness, Numbness Physical Exam Vital Signs/Narrative: Vital Signs Temp Pulse Resp BP Pulse Ox 06/02/19 04:50 98.1 F 93 21 H 154/88 H 96 General: Well nourished, Well developed, No Acute Distress Head: Normocephalic, Atraumatic Eyes: Perrl, EOMI ENT: Moist mucous membranes, No rhinorrhea Neck: Supple, Nontender Cardiovascular: Regular rate, Regular rhythm, No murmurs Respiratory: No distress, CTA bilaterally, Chest nontender Abdomen: Soft, Nondistended, Normal bowel sounds, Tender - Tender in the right flank. Tender right upper quadrant epigastric. No Daniel sign. Negative for: Guarding, Rebound tenderness Back: Nontender, Normal Inspection Extremities: Nontender, No edema Skin: Normal color, No rash Neurological: Alert, Oriented x3, Cranial nerves II-XII grossly intact, Normal Strength, Normal Sensation Psychological: Normal affect, Normal Mood Diagnostic/Tx/Re-eval - Medical Decision Making Patient given IV Dilaudid and Zofran and IV fluids. Lab work and CT abdomen pelvis obtained. Lab work shows normal CBC. Liver function test showed elevated total bili only. Lipase negative. Electrolytes show no major abnormalities. CT abdomen pelvis shows cholecystitis with gallbladder stones noted. Common bile duct dilated without stone seen. Discussed with the surgeon on-call Dr. Rivera. Treat for cholecystitis with Zosyn. Patient feels significantly better after the above treatments. Will be admitted for definitive management.. Preoperative EKG shows normal sinus rhythm at a rate of 94 with no ischemia or arrhythmia ED Disposition - Plan for ED Patient: Disposition: Acute Care [facility] Diagnosis: Acute cholecystitis
[2019-06-02 05:05] LABS: Absolute Lymphocyte Count 0.87 X10^3/uL (0.83-4.51); Absolute Neutrophil Count 5.8 X10^3/uL (2.0-7.7); Basophil# 0.02 X10^3/uL; Basophil% 0.3 % (0-1); Eosinophil# 0.01 X10^3/uL; Eosinophils% 0.1 % (0-5); Hematocrit 41.9 % (37-47); Hemoglobin 14.4 g/dL (12.0-15.0); Lymphocyte # 0.87 X10^3/ul (4.0); Mean Corp Hgb Conc 34.4 g/dL (32-36); Mean Corpuscular Hgb 34.1 pg (27.0-32.0); Mean Corpuscular Volume 99.3 fL (81-99); Mean Platelet Vol. 10.1 fl (6.2-12.0); Monocyte# 0.57 X10^3/uL; Monocyte% 7.8 % (0-10); NRBC Flagged by Analyzer 0 % (0-5); Neutrophil # 5.78 X10^3/uL (2.7-7.7); Neutrophil % 79.5 % (47-70); Platelet Count 212 K/mm3 (150-450); RBC Distribution Width SD 43.8 fl (35.1-43.9); Red Blood Count 4.22 M/mm3 (4.2-5.4); White Blood Count 7.3 K/mm3 (4.4-11.0)
[2019-06-02] MEDS: 0.9% Normal Saline 1,000 ML 1000 ML IV (05:07)
[2019-06-02] MEDS: Ondansetron 4 MG/2 ML Vial IV (05:07)
[2019-06-02] MEDS: HYDROmorphone 1 MG/ML Syringe IV (05:07)
[2019-06-02 05:18] LABS: ALB/GLOB Ratio 1.2 RATIO (0.9-2.4); AST(SGOT) 12 U/L (15-37); Alanine Aminotransfer ALT/SGPT 19 U/L (13-56); Albumin, Serum 3.8 g/dL (3.2-5.0); Alkaline Phosphatase 77 U/L (45-117); Anion Gap 7 (5-15); BUN 11 mg/dL (7-18); BUN/Creat Ratio 8.9 RATIO (10-20); Calcium,Total 8.9 mg/dL (8.5-10.1); Chloride 103 mmol/L (98-107); Creatinine, Serum 1.23 mg/dL (0.55-1.02); EST Glomerular Filtration Rate 46 mL/min (>60); Est Glom Filt Rate - Afr Amer 56 mL/min (>60); Estimated Creatinine Clearance 40.48 ml/min; Globulin 3.3 g/dL (2.2-4.2); Glucose 138 mg/dL (74-106); Lipase 83 U/L (73-393); Potassium 3.9 mmol/L (3.5-5.1); Protein, Total 7.1 g/dL (6.4-8.2); Sodium Level 137 mmol/L (136-145)
[2019-06-02 05:47] LABS: Mucous, Urine 0 SEEN /hpf (<or=2+)
[2019-06-02 05:49] LABS: Color, Urine Yellow (Yellow); Glucose, Dipstick Normal (Normal); Ketone-Dipstick Negative (Negative); Leukocyte Esterase-Dipstick 100 /ul (Negative); Nitrite-Dipstick Negative (Negative); Occult Blood-Urine Negative /ul (Negative); Protein-Dipstick Negative (Negative); Specific Gravity, Urine 1.015 (1.002-1.030); Urine Bilirubin Dipstick Negative (Negative); Urine Clarity Clear (Clear); Urine Urobilinogen Normal (Normal)
[2019-06-02 05:59] LABS: Amorphous Sediment 1+; Bacteria 1+ /hpf (None Seen); Red Blood Cells-Urine 5-10 SEEN /hpf (0-5); Squamous Epithelial Cells - UA 0-5 SEEN /hpf (5-10); White Blood Cells 0-5 SEEN /hpf (0-5)
[2019-06-02 06:00] LABS: Yeast-Urine RARE /hpf (None Seen)
--- NOTE | 2019-06-02 06:21 | EKG12_ITS ---
Test Reason : ABD PAIN Blood Pressure : / mmHG Vent. Rate : 094 BPM Atrial Rate : 094 BPM P-R Int : 190 ms QRS Dur : 080 ms QT Int : 350 ms P-R-T Axes : 046 -04 015 degrees QTc Int : 437 ms Normal sinus rhythm Normal ECG Confirmed by JASPER DAILEY, JACQUELYN ([id number]), commercial production editor KATIE ALEXANDER ([id number]) on 06/04/2019 12:25:20 PM Referred By: Luiz Gomez Confirmed By:JACQUELYN HUTCHINSON MD
[2019-06-02 06:34] LABS: International Normalized Ratio 1.1; Prothrombin Time (Protime)PT. 13.7 SECONDS (11.7-14.9)
[2019-06-02 06:35] LABS: Partial Thromboplast Time 27.4 Seconds (24.1-36.2)
[2019-06-02] MEDS: Morphine 4 MG/ML Syringe IV (06:52)
--- NOTE | 2019-06-02 07:04 | HP.PCM_ITS ---
History of Present Illness Date of Admission: 06/02/19 The patient is a 68 year old F presented to the ER initially yesterday due to epigastric pain for about a day. Patient had normal labs at that time and was sent home. Treated with Protonix for possible reflux. Patient came back in early this morning due to epigastric/right upper quadrant pain. Patient states began about 4 AM patient had some nausea denies any vomiting has had normal bowel function and that ago. Patient denies any pain like this previously. CT abdomen pelvis was done which showed cholelithiasis along with small calcified stone looks to be in the cystic duct. The common bile duct does look to be a little dilated, LFTs were normal except for total bili of 1.3 barely elevated. Patient had a normal white blood cell count with a left shift. Patient was given Zosyn 4.5 g IV in the ER x1 for acute cholecystitis. Past Medical History Past Medical History (Chronic Problems): Chronic Problems (Last Reviewed 09/19/18 @ 12:43 by Ragini Thrasher) GERD (gastroesophageal reflux disease) (Chronic) Arthritis (Chronic) Medical History: Medical History (Last Reviewed 09/19/18 @ 12:43 by Ragini Thrasher) Diarrhea (Acute) R19.7 Arthritis M19.90 Back problem M53.9 Nausea & vomiting R11.2 Allergies No Known Allergies Allergy (Verified 06/02/19 04:49) Home Medications: Ambulatory Orders Medication Instructions Recorded Pantoprazole Sodium [Protonix] 40 mg PO DAILY #30 tab 06/01/19 Surgical History: Surgical History (Last Reviewed 09/19/18 @ 12:43 by Ragini Thrasher) S/P nasal polypectomy Z98.890 Surgical History: no surgical history Psychiatric History: No pertinent psych hx 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 Lives: With Family Smoking Status: Never smoker Alcohol: None Drugs: None - *Family History Maternal Family History: Family History (Last Updated 09/19/18 @ 12:43 by Ragini Thrasher) Mother Colon cancer History Items: No pertinent history Review of Systems Constitutional: Reports: Anorexia VTE Information - Inpt Only VTE Present on Admission: Yes VTE Mechan Device Prophylaxis: SCD's Patient Problems: Active and Suspected Problems (Last Reviewed 09/19/18 @ 12:43 by Ragini Thrasher) Acute cholecystitis (Acute) - Physical Exam Vitals/I&O's: Vital Signs Temp Pulse Resp BP Pulse Ox 98.1 F 93 21 H 154/88 H 78 06/02/19 04:50 06/02/19 04:50 06/02/19 04:50 06/02/19 04:50 06/02/19 05:49 Oxygen Delivery Method Room Air Weight: 196 lb 10.437 oz Body Mass Index (BMI) 32.7 Intake and Output for Last 24 Hours 05/31/19 06/01/19 06/02/19 23:59 23:59 23:59 Intake Total 1000 / 1000 Balance 1000 / 1000 General: Alert, Oriented x3, Cooperative HEENT: Atraumatic Lungs: Normal air movement Cardiovascular: Regular rate Abdomen: Soft, Non-Distended, Tender - Right upper quadrant, equivocal rebound, no guarding Extremities: No clubbing, No cyanosis, No edema Neurological: Cranial nerves II-XII grossly intact Psych/Mental Status: Normal Affect Laboratory Results 06/02/19 04:55: WBC 7.3, RBC 4.22, Hgb 14.4, Hct 41.9, MCV 99.3 H, MCH 34.1 H, MCHC 34.4, RDW Std Deviation 43.8, RDW Coeff of Gertrudis 12.0, Plt Count 212, MPV 10.1, Immature Gran % (Auto) 0.300, Neut % (Auto) 79.5 H, Lymph % (Auto) 12.0 L, Frontier % (Auto) 7.8, Eos % (Auto) 0.1, Baso % (Auto) 0.3, Absolute Neuts (auto) 5.8, Absolute Lymphs (auto) 0.87, Nucleated RBC % 0 06/02/19 04:55: Sodium 137, Potassium 3.9, Chloride 103, Carbon Dioxide 27.0, Anion Gap 7, BUN 11, Creatinine 1.23 H, Estim Creat Clear Calc 40.48, Est GFR (MDRD) Af Amer 56 L, Est GFR (MDRD) Non-Af 46 L, BUN/Creatinine Ratio 8.9 L, Glucose 138 H, Calcium 8.9, Total Bilirubin 1.30 H, AST 12 L, ALT 19, Alkaline Phosphatase 77, Total Protein 7.1, Albumin 3.8, Globulin 3.3, Albumin/Globulin Ratio 1.2, Lipase 83 06/02/19 04:55: PT 13.7, INR 1.1, APTT 27.4 06/02/19 05:40: Urine Color Yellow, Urine Clarity Clear, Urine pH 8.0, Ur Specific [place] 1.015, Urine Protein Negative, Urine Glucose (UA) Normal, Urine Ketones Negative, Urine Occult Blood Negative, Urine Nitrite Negative, Urine Bilirubin Negative, Urine Urobilinogen Normal, Ur Leukocyte Esterase 100 H, Urine RBC 5-10 SEEN, Urine WBC 0-5 SEEN, Ur Squamous Epith Cells 0-5 SEEN, Amorphous Sediment 1+, Urine Bacteria 1+, Urine Mucus 0 SEEN, Urine Yeast RARE Assessment/Plan All Active Problems (Last Reviewed 09/19/18 @ 12:43 by Ragini Thrasher) Screening for intestinal cancer (Acute) Acute cholecystitis (Acute) Diarrhea (Acute) Abdominal pain (Acute) 68-year-old female with acute acute cholecystitis/cholelithiasis Reviewed the anatomy with the patient and discussed the procedure: laparoscopic cholecystectomy with possible cholangiograms, possible open. Review risks including but not limited to bleeding, infection, hernia, bile leak, retained gallstones requiring another procedure ERCP- Endoscopic Retrograde Cholangiopancreatography, injury to another organ (bile ducts, common bile duct, small bowel, etc.) may require transfer to a tertiary care facility and conversion to an open procedure. All questions were answered, patient and her no further questions. We will go to the OR about 830 this morning. Roxi Rivera M.D. Pager: [phone] [facility] [address] [place] [address], [address] [place] [address] Office: [phone]
--- NOTE | 2019-06-02 08:11 | ED.RN ---
report given to surgery. pt tp or at this time.
--- NOTE | 2019-06-02 08:15 | RAD_ITS ---
History: Abdominal pain. Cholangiogram is COMPARISON: CT abdomen and pelvis same date TECHNIQUE: Intraoperative cholangiogram FINDINGS: Gallbladder is not clearly seen. There appears to mild dilation of common bile duct however, appropriate transition of injected contrast from the common bile duct into the small bowel. No evidence of significant intrahepatic ductal dilation. No evidence of filling defect IMPRESSION: As above. Please see performing physician''s report for further details. Electronically Signed: Reid Delgado DO at 11:01 EST Tel , Service support , RAD/Cholangiogram/ O R,Initial
--- NOTE | 2019-06-02 09:00 | GALL_PTH ---
PATIENT: JERMAIN ROBLES [place] [facility] [id number] AGE/SX: 68/F ROOM: RE06/02/[address]: Dr. Roxi Rivera MD : 1950 BED: DIS: 06/02/2019 SPEC #: [id number] RECD: 06/04/19 13:25 STATUS: RONNI AMBROSIO #: [id number] WILLIS: 06/02/19 09:[address]: Roxi Rivera DEPT: SURGICAL PATHOLOGY RECD BY: Patrick Phipps ENTERED: 06/04/19 14:50 SP TYPE: FLAKITO SEAMAN DR: Dr. Luiz Gomez, DO Tissues: Gallbladder, NOS Procedures: Surgery Specimen Level III HEADER OPERATION: Laparoscopic cholecystectomy with IOC PRE-OP DIAGNOSIS: Acute cholecystitis TISSUE SUBMITTED: Gallbladder MICROSCOPIC DIAGNOSIS Gallbladder, cholecystectomy: Acute and chronic ulcerated and hemorrhagic cholecystitis and cholelithiasis. SJ:joann 06/05/19 MICROSCOPIC DESCRIPTION Slides are reviewed. GROSS DESCRIPTION Received is one container labeled with the patient's name and designated gallbladder. The specimen consists of a gallbladder measuring 10 cm in length and up to 4 cm in diameter. The serosal surface is congested and hemorrhagic. The external surface is pink-friedman, smooth and glistening for the most part. Focally it is granular, hemorrhagic and contains cautery artifact. The gallbladder contains grayish, purulent, turbid bile and multiple brown irregular stones measuring in aggregate 3 x 2 x 0.5 cm and 0.3 to 0.5 in greatest dimension. The mucosa is bile-stained and without any mass lesions. The gallbladder wall measures up to 0.3 cm in thickness. Health Education Director sections from the gallbladder and the cystic duct are submitted in one cassette. / ALIZA:joann 06/04/19 TC:2 CPT: 46901
[2019-06-02] MEDS: Bupivacaine Mpf 0.5% 30 ML VIAL (09:54)
--- NOTE | 2019-06-02 09:56 | PCM.OPRPT ---
Report of Operation Date of Procedure: 06/02/19 Pre-Operative Diagnosis: Acute calculus cholecystitis Post-Operative Diagnosis: Same Surgery/Procedure Performed:: Laparoscopic cholecystectomy with cholangiograms property management supervisor: Merritt Salazar Type of Anesthesia:: General/Supplemental Anesthesiologist: Coby Hernandez Special Medications: Patient given Zosyn 4.5 g IV x1 for acute cholecystitis in the ER Specimen's removed: Gallbladder Estimated Blood Loss (mL): 40 cc Fluids Replaced: 1000 cc Description of Procedure: Indications this is a 68 year-old female who developed right upper quadrant abdominal pain/nausea and on workup was found to have cholelithiasis, acute cholecystitis, with a dilated common bile duct, normal LFTs except for a slight elevation of total bili at 1.3. Laparoscopic cholecystectomy was elected. Description procedure: The patient was placed on operating table in supine position. General Anesthesia was induced. A timeout was completed verifying correct patient, procedure, site, position and special equipment prior to beginning procedure. The abdomen was prepped and draped in usual sterile fashion. An incision was made in the natural skin line above the umbilicus. The fascia was elevated and incised. The peritoneum was elevated and incised. Entry into the peritoneum was confirmed visually and no bowel was noted in the vicinity of the incision. Ruiz trocar was placed. The abdomen was insufflated with carbon dioxide to a pressure of 12-15 mmHg. Patient tolerated insufflation well. The laparoscope was then inserted and abdomen inspected. No injuries from initial trocar placement were noted. Additional trochars were then inserted in the following locations 5 mm trocar in the epigastrium and 2 more 5 mm trochars along the right costal margin. The gallbladder was inflammed/irritated and distended/tense; otherwise there was no abnormalities in the abdomen were found. The table is placed in reverse Trendelenburg position with the right side up. The aspiration needle was used to decompress the gallbladder to allow the dome to be grasped. The adhesions between the gallbladder and omentum were lysed sharply. The dome of the gallbladder was grasped with atraumatic grasper passed through the lateral port and retracted over the dome of the liver. Infundibulum was then grasped with atraumatic grasper through the midclavicular port and retracted to the right lower quadrant. This maneuver exposed Calot's triangle. The peritoneum overlying the gallbladder infundibulum was then incised and cystic duct and artery identified and circumferentially dissected. Ranfac catheter was used for cholangiograms. The cholangiogram showed good filling of the dilated common bile duct into the duodenum with no filling defects, good filling of the right and left bile ducts as well. The cystic duct and artery were then doubly clipped and divided close to the gallbladder. The gallbladder then dissected from its peritoneal attachments by electrocautery. Hemostasis was checked and the gallbladder and contained stones were removed using the endoscopic retrieval bag through the umbilical port. The gallbladder is passed off table as specimen. The gallbladder fossa was copiously irrigated with saline and hemostasis obtained. There is no evidence of bleeding from the gallbladder fossa or cystic artery leakage of bile from the cystic duct stump. Secondary trochars removed under direct vision. No bleeding was noted the trocar sites. The laparoscope was withdrawn and umbilical trocar removed. The abdomen was allowed to collapse. The fascia of the 12 mm trocar was closed with a [id number] 0 Vicryl suture. The skin was closed with sutures of 4-0 Monocryl and Steri-Strips. The orogastric tube was removed and the patient was extubated. The patient tolerated procedure well and was taken to the postanesthesia care unit in stable condition. - Complications None - Admit VTE Documentation VTE Present on Admission: Yes VTE Mechan Device Prophylaxis: SCD's
[2019-06-02] MEDS: Lactated Ringers 1,000 ML 130 ML IV (10:10)
--- NOTE | 2019-06-02 10:11 | PCM.DC.GB ---
Discharge Diet: Light diet - advance as tolerated Discharge Activity: May not drive while taking narcotic pain medications. May shower in (days): 1 Lifting Restrictions: No lifting < 20 pounds x 3 weeks, no strenuous exercise for 5 wks Call your doctor if your incision/area has: Continuous Slow Oozing, Sudden Increased Bleeding, Increased Pain/ Swelling, Increased Redness, Foul Smelling Discharge, Swelling at the incision site Call your doctor if you observe: Fever of 101 or Higher Remove Dressing in (days):: 1 - Okay to remove op sites tomorrow, Steri-Strips and for 7 to 10 days for him follow-up in 10 days okay to remove Additional Instructions: Okay to take ibuprofen 400-600 mg PO q6hr PRN along with the Percocet. Avoid Tylenol since there is already Tylenol in the Percocet. Take all pain meds with food. Percocet can cause constipation recommend taking daily stool softener (i.e. Colace/docusate) while taking the pain meds. Recommend starting some MiraLAX in 1 to 2 days if no bowel movement. If still no bowel movement a day recommend taking magnesium citrate half the bottle and waiting 4-6 hours if still no results take the other half the bottle. Allergies/Adverse Reactions: Allergies No Known Allergies Allergy (Verified 06/02/19 04:49) Medications to take at Discharge Pantoprazole Sodium [Protonix] 40 mg PO DAILY #30 tab 06/01/19 Oxycodone HCl/Acetaminophen [Percocet 5/325] 1 - 2 tab PO Q6H PRN PRN 4 Days #25 tab 06/02/19 The following prescriptions were given: Oxycodone HCl/Acetaminophen [Percocet 5/325] 1 - 2 tab PO Q6H PRN PRN 4 Days #25 tab PRN Reason: Pain Transmission Status: Received by [id number] Primary Care Physician: Luiz Gomez DO [Primary Care Provider] - Test Results: Test results from this visit will be discussed in further detail at your follow-up appointment, if applicable. Please Follow Up With: Roxi Rivera MD - After 5 PM and on the weekends call [phone] with any concerns When: Call the office for a follow-up appointment in 2 weeks [phone] Proposed Discharge Date: 06/02/19
[2019-06-02] MEDS: Pantoprazole Sodium 40 MG Tablet PO (13:12)
== END 2019-06-02 15:30 | disposition home or self-care (01) ==
LOC: ED 06:30 → SDC 07:08 → MS3 09:22
PROVIDERS: Emergency Provider Emergency Medicine; PCP Family Medicine; Referring Provider Family Medicine; Visit Provider Surgery
PROC: (CPT 47610; principal; 2019-06-02 09:00)
DX: K80.12 Calculus of gallbladder with acute and chronic cholecystitis without obstruction (principal); M19.90 Unspecified osteoarthritis, unspecified site; K21.9 Gastro-esophageal reflux disease without esophagitis; Z79.899 Other long term (current) drug therapy
CPT/HCPCS: 00790; 47563; 74176; 74300; 76000; 80053; 81001; 83690; 85025; 85610; 85730; 88304; 93005; 99285; J7030; J7040; J7120; J1610; J2405

== ENCOUNTER → 2019-10-10 09:25 | Outpatient (CLI) | payer MEDICARE, SELFPAY ==
[2019-06-02 11:16] VITALS: BMI 32.7
[2019-10-10 12:41] LABS: Absolute Lymphocyte Count 1.36 X10^3/uL (0.83-4.51); Absolute Neutrophil Count 1.9 X10^3/uL (2.0-7.7); Basophil# 0.01 X10^3/uL; Basophil% 0.3 % (0-1); Eosinophil# 0.26 X10^3/uL; Eosinophils% 6.8 % (0-5); Hematocrit 42.9 % (37-47); Hemoglobin 13.9 g/dL (12.0-15.0); Lymphocyte # 1.36 X10^3/ul (4.0); Lymphocyte % 35.8 % (19-41); Mean Corp Hgb Conc 32.4 g/dL (32-36); Mean Corpuscular Hgb 33.5 pg (27.0-32.0); Mean Corpuscular Volume 103.4 fL (81-99); Mean Platelet Vol. 10.3 fl (6.2-12.0); Monocyte# 0.31 X10^3/uL; Monocyte% 8.2 % (0-10); NRBC Flagged by Analyzer 0 % (0-5); Neutrophil # 1.85 X10^3/uL (2.7-7.7); Neutrophil % 48.6 % (47-70); Platelet Count 211 K/mm3 (150-450); RBC Distribution Width CV 12.7 % (11.6-14.6); RBC Distribution Width SD 47.6 fl (35.1-43.9); Red Blood Count 4.15 M/mm3 (4.2-5.4); White Blood Count 3.8 K/mm3 (4.4-11.0)
[2019-10-10 12:44] LABS: ALB/GLOB Ratio 1.2 RATIO (0.9-2.4); AST(SGOT) 19 U/L (15-37); Alanine Aminotransfer ALT/SGPT 20 U/L (13-56); Albumin, Serum 3.7 g/dL (3.2-5.0); Alkaline Phosphatase 69 U/L (45-117); Anion Gap 8 (5-15); BUN 21 mg/dL (7-18); BUN/Creat Ratio 18.1 RATIO (10-20); Calcium,Total 8.8 mg/dL (8.5-10.1); Chloride 106 mmol/L (98-107); Cholesterol 265 mg/dL (200); Creatinine, Serum 1.16 mg/dL (0.55-1.02); EST Glomerular Filtration Rate 50 mL/min (>60); Est Glom Filt Rate - Afr Amer 60 mL/min (>60); Globulin 3.2 g/dL (2.2-4.2); Glucose 89 mg/dL (74-106); High Density Lipoprotein 59 mg/dL; Protein, Total 6.9 g/dL (6.4-8.2); Sodium Level 144 mmol/L (136-145); Triglycerides 99 mg/dL; Very Low Density Lipoprotein 20 mg/dL (5-40)
[2019-10-10 12:46] LABS: Vitamin D,25 Hydroxy 24.6 ng/mL
== END ==
PROVIDERS: PCP Family Medicine; Visit Provider Family Medicine
DX: E87.1 Hypo-osmolality and hyponatremia (principal); M85.80 Other specified disorders of bone density and structure, unspecified site; E78.5 Hyperlipidemia, unspecified; Z51.81 Encounter for therapeutic drug level monitoring
CPT/HCPCS: 36415; 80053; 80061; 82306; 85025

== ENCOUNTER → 2020-02-11 17:47 | Outpatient (CLI) | payer MEDICARE, SELFPAY ==
[2019-06-02 11:16] VITALS: BMI 32.7
== END ==
PROVIDERS: PCP Family Medicine; Referring Provider Family Medicine; Visit Provider Family Medicine
DX: Z20.828 Contact with and (suspected) exposure to other viral communicable diseases (principal)
CPT/HCPCS: 87635; C9803; U0003

== ENCOUNTER 2020-02-18 11:25 | Inpatient (IN) | payer MEDICARE, SELFPAY ==
[2019-06-02 11:16] VITALS: BMI 32.7
[2020-02-18] VITALS (9 sets, daily range): BP systolic 104–129; BP diastolic 73–76; PULSE 68–102; RESP 14–26; TEMP 36.4–36.9; O2SAT 93–98; BMI 28.7; BMI 29.7
--- NOTE | 2020-02-18 11:56 | EKG12_ITS ---
Test Reason : SOB Blood Pressure : / mmHG Vent. Rate : 089 BPM Atrial Rate : 089 BPM P-R Int : 184 ms QRS Dur : 078 ms QT Int : 360 ms P-R-T Axes : 047 013 037 degrees QTc Int : 438 ms Normal sinus rhythm Normal ECG Confirmed by JIMMY DAILEY, MIKA ([id number]), commissioning editor ALEJANDRO BOSWELL ([id number]) on 02/25/2020 8:39:18 A M Referred By: ESPERANZA/ÁNGEL Confirmed By:AYO MARQUEZ MD
--- NOTE | 2020-02-18 11:58 | ED.VIS.GEN ---
History of Present Illness Chief Complaint: Shortness of Breath Informant: Patient Narrative: 69-year-old female without significant past medical history presents with shortness of breath. Patient was diagnosed with coronavirus approximately 1 week ago. States over the past 2 to 3 days she has had worsening shortness of breath. Denies any chest pain, nausea, vomiting, diaphoresis. States that she does have myalgias. Denies any fevers at home. Patient was treated with a single dose of steroids by her primary care physician. Patient is not a current smoker. Past Medical History - Allergies and Home Meds Allergies/Adverse Reactions: Allergies No Known Allergies Allergy (Verified 06/02/19 04:49) Primary Care Physician: Luiz Gomez DO [Primary Care Provider] - Past Medical History: None Surgical History: no surgical history Lives: Spouse/ Significant Other Smoking Status: Never smoker Alcohol: None Drugs: None - Family History Maternal Family History: Family History (Last Updated 09/19/18 @ 12:43 by Ragini Thrasher) Mother Colon cancer Family History: Reports: No pertinent history Review of Systems General: Denies: Chills, Fever, Sweats Eyes: Denies: Visual changes - bilaterally, Diplopia ENT: Denies: Rhinorrhea, Sore throat Cardiovascular: Denies: Chest pain, Palpitations Respiratory: Reports: Dyspnea, Cough. Denies: Dyspnea on exertion Gastrointestinal: Denies: Abdominal pain, Nausea, Vomiting, Diarrhea, Melena, Hematochezia Genitourinary: Denies: Dysuria, Hematuria, Frequency Musculoskeletal: Denies: Back pain, Extremity Pain Skin: Denies: Rash, Wounds Neurological: Denies: Headache, Weakness, Numbness Physical Exam Vital Signs/Narrative: Vital Signs Temp Pulse Resp BP Pulse Ox 02/18/20 11:25 97.5 F L 102 H 26 H 104/73 93 General: Well nourished, Well developed, No Acute Distress Head: Normocephalic, Atraumatic Eyes: Perrl, EOMI ENT: Moist mucous membranes, No rhinorrhea Neck: Supple, Nontender Cardiovascular: Regular rate, Regular rhythm, No murmurs Respiratory: No distress, CTA bilaterally, Chest nontender Abdomen: Soft, Nontender, Nondistended, Normal bowel sounds Back: Nontender, Normal Inspection Extremities: Nontender, No edema Skin: Normal color, No rash Neurological: Alert, Oriented x3, Cranial nerves II-XII grossly intact, Normal Strength, Normal Sensation Psychological: Normal affect, Normal Mood ED Disposition - Plan for ED Patient: Referrals: Luiz Gomez DO [Primary Care Provider] -
[2020-02-18] MEDS: dexAMETHasone 10 MG/ML Vial IV (12:32)
[2020-02-18 12:51] LABS: Absolute Lymphocyte Count 0.89 X10^3/uL (0.83-4.51); Absolute Neutrophil Count 3.1 X10^3/uL (2.0-7.7); Basophil# 0.01 X10^3/uL; Basophil% 0.2 % (0-1); Eosinophil# 0.07 X10^3/uL; Eosinophils% 1.5 % (0-5); Hematocrit 37.8 % (37-47); Hemoglobin 12.7 g/dL (12.0-15.0); Lymphocyte # 0.89 X10^3/ul (4.0); Lymphocyte % 19.3 % (19-41); Mean Corp Hgb Conc 33.6 g/dL (32-36); Mean Corpuscular Volume 101.1 fL (81-99); Mean Platelet Vol. 10.9 fl (6.2-12.0); Monocyte# 0.48 X10^3/uL; Monocyte% 10.4 % (0-10); NRBC Flagged by Analyzer 0 % (0-5); Neutrophil # 3.11 X10^3/uL (2.7-7.7); Neutrophil % 67.5 % (47-70); Platelet Count 205 K/mm3 (150-450); RBC Distribution Width CV 12.3 % (11.6-14.6); RBC Distribution Width SD 45.9 fl (35.1-43.9); Red Blood Count 3.74 M/mm3 (4.2-5.4); White Blood Count 4.6 K/mm3 (4.4-11.0)
[2020-02-18 13:07] LABS: Anion Gap 4 (5-15); BUN 13 mg/dL (7-18); Calcium,Total 8.7 mg/dL (8.5-10.1); Chloride 106 mmol/L (98-107); Creatinine, Serum 0.93 mg/dL (0.55-1.02); EST Glomerular Filtration Rate 64 mL/min (>60); Est Glom Filt Rate - Afr Amer 78 mL/min (>60); Estimated Creatinine Clearance 54.95 ml/min; Glucose 97 mg/dL (74-106); Potassium 3.6 mmol/L (3.5-5.1); Sodium Level 139 mmol/L (136-145)
--- NOTE | 2020-02-18 13:30 | RAD_ITS ---
STUDY: X-RAY CHEST REASON FOR EXAM: Female, 69 years old. Shortness of breath, cough, positive COVID 1 week ago TECHNIQUE: Single AP portable view of the chest. COMPARISON: Comparison is made with prior study dated 06/01/2019. FINDINGS: EKG electrodes are seen. Mild increased linear markings at the lung bases slightly more prominent on the left side. Early bibasilar infiltrates should be ruled out. There is no demonstrated pleural abnormality. Normal size heart. Normal mediastinum and sharon. Normal visualized pulmonary arteries. There is atherosclerotic calcification of the aortic arch with tortuosity. There are diffuse degenerative changes of the visualized thoracic spine. Normal visualized ribs, clavicles, and shoulders. There is no demonstrated abnormality of the visualized soft tissue structures of the upper abdomen. RAD/Chest 1 View (Portable) IMPRESSION: Mild increased markings at the lung bases likely worse on the left side. Early bibasilar infiltrates should be ruled out. Electronically Signed: Kenneth Hernández, at 13:58 EDT , Service support ,
--- NOTE | 2020-02-18 14:31 | ED.RN ---
rn ambulated pt around room. pulse ox dropped to 90 and patient was very short of breath. rn assisted patient back to bed and applied 2l o2 & pt was resting at 97%. rn informed dr. vyas at this time. rn will continue to monitor.
--- NOTE | 2020-02-18 15:03 | HP.PCM_ITS ---
Problem List (1) Community acquired pneumonia Status: Suspected (2) COVID-19 Status: Acute (3) GERD (gastroesophageal reflux disease) Status: Chronic (4) Arthritis Status: Chronic History of Present Illness Date of Admission: 02/18/20 Chief Complaint: Shortness of breath. The patient is a 69 year old F with past medical history as mentioned above presented to the emergency room because of shortness of breath. 1 week ago, patient has been complaining of headache and sinus drainage for which COVID-19 testing was done and it was positive. She was given prescriptions for doxycycline and Decadron by her PCP and she went home. She mentions she has been taking Decadron and doxycycline since this past Tuesday. Over the last 4 to 5 days, she has been having increasing shortness of breath, exertional, aggravated by any type of activity, minimal relief with rest, associated with productive cough with yellow sputum. She denied fever at home, abdominal pain, nausea, vomiting, constipation or diarrhea. She does have chronic abdominal discomfort and diarrhea after she had cholecystectomy back on May 2019 and no change to her usual abdominal discomfort or diarrhea. In the emergency department, patient was afebrile, pulse ox was in the mid 90s on room air. Her pulse ox dropped down to 90% with ambulation and patient was very short of breath, pulse ox is back to 97% on 2 L. Her routine blood work was unremarkable. EKG revealed normal sinus rhythm, normal AK interval, normal QRS, normal QTC, no acute segment changes. Troponin is negative. Chest x-ray revealed questionable right lower lobe early infiltrate. She is being admitted for COVID-19 viral pneumonia with hypoxia and possible secondary bacterial c ommunity-acquired pneumonia. Past Medical History Past Medical History (Chronic Problems): Chronic Problems (Last Updated 02/18/20 @ 14:[address] Starr Richardson MD) GERD (gastroesophageal reflux disease) (Chronic) Arthritis (Chronic) Medical History: Medical History (Last Updated 02/18/20 @ 14:[address] Starr Richardson MD) Arthritis M19.90 Back problem M53.9 Nausea & vomiting R11.2 Allergies No Known Allergies Allergy (Verified 06/02/19 04:49) Home Medications: Ambulatory Orders Medication Instructions Recorded Alendronate Sodium [Fosamax] 70 mg PO QWEEK 02/18/20 Cholecalciferol (Vitamin D3) 2,000 unit PO DAILY 02/18/20 [Vitamin D3] Codeine Phosphate/Guaifenesin 10 ml PO Q4H PRN PRN 02/18/20 [Virtussin AC 10-100 mg/5 ml Lq] Colestipol HCl 2 tab PO 4X/DAY 02/18/20 Cyanocobalamin (Vitamin B-12) 2,500 mcg PO DAILY 02/18/20 [Vitamin B12] Doxycycline [Vibramycin] 100 mg PO BID 02/18/20 Pantoprazole Sodium [Protonix] 40 mg PO DAILY 02/18/20 Surgical History: Surgical History (Last Reviewed 09/19/18 @ 12:43 by Ragini Thrasher) S/P nasal polypectomy Z98.890 Surgical History: cholecystectomy Psychiatric History: No pertinent psych hx 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 Starr Richardson MD) Mother Colon cancer Paternal Family History: Family History (Last Reviewed 02/18/20 @ 15:[address] Starr Richardson MD) Mother Colon cancer History Items: No pertinent history Review of Systems Constitutional: Reports: Weakness, Fatigue. Denies: Anorexia, Chills, Fever Eyes: Denies: Blurred vision, Double vision, Drainage, Redness HEENT: Reports: Head Aches, Nasal Congestion. Denies: Difficulty Hearing, Ear Pain, Eye Pain, Sore Throat Cardiovascular: Denies: Chest Pain, Chest Pressure, Chest Tightness, Heaviness, Light Headedness, Palpitations, Syncope Respiratory: Reports: Cough, Shortness of Breath, Shortness of breath upon exertion, Sputum production. Denies: Pleuritic Pain, Wheezing Gastrointestinal: Denies: Abdominal Pain, Constipation, Diarrhea, Nausea, Vomiting Genitourinary: Denies: Dysuria, Frequency, Hematuria Musculoskeletal: Denies: Arm Pain, Back Pain, Foot Pain Skin: Denies: Dryness, Rash Neurological: Denies: Balance problems, Double vision, Change in Speech, Slurred speech, Focal weakness, Headaches, Numbness, Tingling Psychiatric: Denies: Anxiety, Depression Endocrine: Denies: Change in Body Habitus, Polydipsia, Polyuria VTE Information - Inpt Only VTE Present on Admission: No VTE Mechan Device Prophylaxis: None VTE Pharm Prophylaxis ordered?: Yes Patient Problems: Active and Suspected Problems (Last Updated 02/18/20 @ 14:[address] Starr Richardson MD) Community acquired pneumonia (Suspected) COVID-19 (Acute) - Physical Exam Vitals/I&O's: Vital Signs Temp Pulse Resp BP Pulse Ox 97.5 F L 80 17 120/73 97 02/18/20 11:25 02/18/20 14:30 02/18/20 14:30 02/18/20 14:30 02/18/20 14:30 Oxygen Delivery Method Room Air Weight: 178 lb Body Mass Index (BMI) 28.7 General: Alert, Oriented x3, Cooperative, - - Mildly short of breath. HEENT: Atraumatic, PERRLA, EOMI, Normocephalic Oral: Moist Mucosa, No Gingival or Mucosal Lesions/ Ulcerations Neck: Supple, No JVD, Negative Carotid Bruits, Trachea Midline, Thyroid Normal Size and Texture Lungs: Diminished, Rales, Short of Breath, - - Diminished breath sounds at the bases, right basal crackles. Cardiovascular: Regular rate, Regular Rhythm, Normal S1, Normal S2, No murmurs, PMI Normal Abdomen: Bowel Sounds Present, Soft, Non Tender, Non-Distended, No Hepato- splenomegaly Extremities: No clubbing, No cyanosis, No edema Skin: No rashes, No breakdown Lymphatic: No Cervical, Supraclavicular, or Inguinal Adenopathy Neurological: Cranial nerves II-XII grossly intact, Motor Exam 5/5 strength throughout Psych/Mental Status: Normal Affect, Appropriate, Alert and oriented to time, place, person, mood and affect Laboratory Results 02/18/20 12:40: WBC 4.6, RBC 3.74 L, Hgb 12.7, Hct 37.8, MCV 101.1 H, MCH 34.0 H , MCHC 33.6, RDW Std Deviation 45.9 H, RDW Coeff of Gertrudis 12.3, Plt Count 205, MPV 10.9, Immature Gran % (Auto) 1.100 H, Neut % (Auto) 67.5, Lymph % (Auto) 19.3, [place] % (Auto) 10.4 H, Eos % (Auto) 1.5, Baso % (Auto) 0.2, Absolute Neuts (auto) 3.1, Absolute Lymphs (auto) 0.89, Nucleated RBC % 0 02/18/20 12:40: Sodium 139, Potassium 3.6, Chloride 106, Carbon Dioxide 29.0, Anion Gap 4 L, BUN 13, Creatinine 0.93, Estim Creat Clear Calc 54.95, Est GFR (MDRD) Af Amer 78, Est GFR (MDRD) Non-Af 64, BUN/Creatinine Ratio 14.0, Glucose 97, Calcium 8.7, Troponin I < 0.015 Clinical Impression(s) from Imaging Studies Chest X-Ray 02/18/20 13:30 IMPRESSION: Mild increased markings at the lung bases likely worse on the left side. Early bibasilar infiltrates should be ruled out. Electronically Signed: Kenneth Hernández, at 13:58 EDT , Service support , Current Medications Ceftriaxone Sodium (Rocephin) 1 gm in 50 mls @ 100 mls/hr IV X1 ONE Stop: 02/18/20 15:20 Azithromycin 500 mg/ Dextrose 255 mls @ 250 mls/hr IV X1 ONE Stop: 02/18/20 15:52 Assessment/Plan All Active Problems (Last Updated 02/18/20 @ 14:[address] Starr Richardson MD) COVID-19 (Acute) This is a 69 years old female patient presented to the emergency room because of shortness of breath with productive cough, was diagnosed with COVID-19 a week ago, was on Decadron and doxycycline without improvement, found to have possible right lower lobe infiltrate and hypoxia and she is being admitted for treatment. #1 acute COVID-19 viral pneumonia/possible secondary bacterial community- acquired pneumonia: Chest x-ray reviewed. Pulse ox has been in the low 90s but dropped down to 90% with ambulation and patient was short of breath and tachypneic. No evidence of sepsis or severe sepsis. Plan: Admit to [facility] 2, telemetry monitoring, oxygen by nasal cannula to keep O2 saturation more than 92%, start IV Rocephin and Zithromax empirically, check ESR, CRP, CPK, D-dimer, INR, LFT, start IV Decadron, COVID-19 precautions, infectious disease consult, repeat CBC and BMP tomorrow morning. #2 hypoxia: Secondary to #1. Currently, patient is on oxygen at 2 L, pulse ox is 97%. She looks short of breath. She is non-smoker, never on oxygen at home. Plan as above, albuterol inhaler as needed. #3 GERD: Continue PPI. #4 osteoarthritis: Tylenol as needed, patient has been on Fosamax weekly which will be held. #5 DVT prophylaxis: Subcu enoxaparin This note was generated with [employer] dictation software. It may contain incorrect words, spelling, and punctuation that were not noted in checking the note before signing. Inpatient E&M: 54463 Init Hosp L2
[2020-02-18] MEDS: Ceftriaxone 1 GM/50 ML BAG IV (15:14)
[2020-02-18 15:31] LABS: Erythrocyte Sedimentation Rate 13 mm/hr (0-30)
[2020-02-18 15:43] LABS: AST(SGOT) 21 U/L (15-37); Alanine Aminotransfer ALT/SGPT 25 U/L (13-56); Albumin, Serum 3.2 g/dL (3.2-5.0); Alkaline Phosphatase 89 U/L (45-117); Bilirubin, Direct 0.23 mg/dL (0.00-0.30); CPK Total, Creatine Kinase 15 U/L (26-192); Globulin 3.2 g/dL (2.2-4.2); Protein, Total 6.4 g/dL (6.4-8.2)
[2020-02-18 15:45] LABS: International Normalized Ratio 1.1; Prothrombin Time (Protime)PT. 13.8 SECONDS (11.7-14.9)
[2020-02-18 15:58] LABS: D-Dimer Quantitative (DVT/PE) 10.07 FEU/ug/m (0.27-0.49)
--- NOTE | 2020-02-18 16:34 | CT_ITS ---
We are attempting to reach an attending provider to discuss findings. An addendum with communication details will be sent when the communication is complete. STUDY: CTA CHEST REASON FOR EXAM: Female, 69 years old. HYPOXIA, COVID + RADIATION DOSAGE (If Supplied By Facility): CTDIvol = ( 10.07 ) mGy, DLP = ( 344.07 ) mGycm TECHNIQUE: The examination was performed with the intravenous administration of IV 100mL Isovue-370. Post-processing of the angiographic images was performed, with multiplanar reformation and 3D reconstruction. Individualized dose optimization techniques were used for this CT. COMPARISON: None. FINDINGS: There are acute occlusive emboli in the RIGHT mid and distal pulmonary artery branches. There is NO saddle embolus. Normal thoracic aorta and visualized great vessels. There is no demonstrated aortic dissection. Normal heart and pericardium. Normal mediastinum. Normal hilar regions. There are multifocal bilateral pulmonary opacities consistent with pneumonitis. There is NO pleural effusion or pneumothorax. Normal chest wall structures. Normal osseous structures. Normal visualized upper abdomen. CT/CTA Chest W/WO Contrast IMPRESSION: There are acute occlusive emboli in the RIGHT mid and distal pulmonary artery branches. There is NO saddle embolus. There is no demonstrated aortic dissection. Normal heart and pericardium. There are multifocal bilateral pulmonary opacities consistent with pneumonitis. There is NO pleural effusion or pneumothorax. Electronically Signed: Toby Johnson MD at 0:51 EDT , Service support ,
[2020-02-18 17:42] LABS: Partial Thromboplast Time 25.2 Seconds (24.1-36.2)
[2020-02-18] MEDS: HEPARIN/D5w 25,000 UNITS 25,000 UNITS/250 ML IV.SOLN. 12 UNITS IV (17:49)
[2020-02-19] VITALS (11 sets, daily range): BP systolic 134–143; BP diastolic 68–80; PULSE 50–79; RESP 18–23; TEMP 36.4–36.8; O2SAT 95–97; BMI 29.7
[2020-02-19 00:12] LABS: Partial Thromboplast Time 77.8 Seconds (24.1-36.2)
[2020-02-19 07:24] LABS: Partial Thromboplast Time 132.3 Seconds (24.1-36.2)
--- NOTE | 2020-02-19 07:29 | PN_ITS ---
Patient Problems: Active and Suspected Problems (Last Updated 02/18/20 @ 14:[address] Starr Richardson MD) Community acquired pneumonia (Suspected) COVID-19 (Acute) Reason for Visit: Follow-up for COVID-19 bilateral pneumonia and right mid and and lower lobe PE Objective: No fever. Heart rate and blood pressure is controlled. Patient on 2 L of oxygen. On IV heparin drip. Patient further said she is symptomatic for 3 weeks started with shortness of breath which progressively got worsened along with a headache. Her headache is mainly frontal, sinus headache type. She denies loss of smell or taste sensation. Denies chest pain. Has productive cough. Physical exam General: Alert, Oriented x3, Cooperative HEENT: Atraumatic, PERRLA, EOMI, Normocephalic Oral: No Gingival or Mucosal Lesions/ Ulcerations Neck: Supple, No JVD, Negative Carotid Bruits Lungs: Air entry diminished in bilateral lung bases. Bilateral coarse crepitation present. On 2 L of oxygen. Cardiovascular: Normal sinus rhythm. Normal S1, Normal S2, No murmurs Abdomen: Bowel Sounds Present, Soft, Non Tender, Non-Distended : No renal angle tenderness. No suprapubic tenderness. Extremities: No edema, Capillary Refill Less than 3 Seconds Skin: No rashes, No breakdown Musculoskeletal: No Tenderness to Palpation of Joints or Extremities Neurological: Cranial nerves II-XII grossly intact, Deep Tendon Reflexes 2+/4 and Symmetrical, Neuro grossly intact Psych/Mental Status: Normal Affect, Appropriate. Vitals/I&O's: Vital Signs Temp Pulse Resp BP Pulse Ox 98.2 F 50 L 20 H 138/75 H 97 02/19/20 01:35 02/19/20 04:00 02/19/20 01:35 02/19/20 01:35 02/19/20 01:35 Oxygen Flow Rate (L/min) 2 Oxygen Delivery Method Nasal Cannula Weight: 184 lb 4.903 oz Body Mass Index (BMI) 29.7 Intake and Output for Last 24 Hours 02/17/20 02/18/20 02/19/20 23:59 23:59 23:59 Intake Total 655 / 855 277.2 / 277.2 Balance 655 / 855 277.2 / 277.2 Laboratory Results 02/18/20 12:40: WBC 4.6, RBC 3.74 L, Hgb 12.7, Hct 37.8, MCV 101.1 H, MCH 34.0 H , MCHC 33.6, RDW Std Deviation 45.9 H, RDW Coeff of Gertrudis 12.3, Plt Count 205, MPV 10.9, Immature Gran % (Auto) 1.100 H, Neut % (Auto) 67.5, Lymph % (Auto) 19.3, [place] % (Auto) 10.4 H, Eos % (Auto) 1.5, Baso % (Auto) 0.2, Absolute Neuts (auto) 3.1, Absolute Lymphs (auto) 0.89, Nucleated RBC % 0 02/18/20 12:40: Sodium 139, Potassium 3.6, Chloride 106, Carbon Dioxide 29.0, Anion Gap 4 L, BUN 13, Creatinine 0.93, Estim Creat Clear Calc 54.95, Est GFR (MDRD) Af Amer 78, Est GFR (MDRD) Non-Af 64, BUN/Creatinine Ratio 14.0, Glucose 97, Calcium 8.7, Troponin I < 0.015 02/18/20 12:40: ESR 13 02/18/20 12:40: PT 13.8, INR 1.1, D-Dimer Quant (PE/DVT) 10.07 H* 02/18/20 12:40: Total Bilirubin 0.80, Direct Bilirubin 0.23, AST 21, ALT 25, Alkaline Phosphatase 89, Total Creatine Kinase 15 L, C-React Prot Ext Range 56.80 H, Total Protein 6.4, Albumin 3.2, Globulin 3.2 02/18/20 17:20: APTT 25.2 02/18/20 23:45: APTT 77.8 H 02/19/20 06:45: WBC Pending, RBC Pending, Hgb Pending, Hct Pending, MCV Pending, MCH Pending, MCHC Pending, RDW Std Deviation Pending, RDW Coeff of Gertrudis Pending, Plt Count Pending, Neut % (Auto) Pending, Absolute Neuts (auto) Pending 02/19/20 06:45: Sodium Pending, Potassium Pending, Chloride Pending, Carbon Dioxide Pending, Anion Gap Pending, BUN Pending, Creatinine Pending, Est GFR (MDRD) Af Amer Pending, Est GFR (MDRD) Non-Af Pending, BUN/Creatinine Ratio Pend ing, Glucose Pending, Calcium Pending 02/19/20 06:45: APTT 132.3 H* Current Medications Acetaminophen (Tylenol) 650 mg PO Q6H PRN PRN PRN Reason: Pain Score 1-10/Temp > 100.7 F Albuterol Sulfate (Ventolin Hfa (Sp)) 2 puff INHALATION Q4H PRN PRN PRN Reason: Shortness of breath, wheezing Colestipol HCl (Colestid Tablet) 2 gm PO 4X/DAY [facility] Last Admin: 02/18/20 21:26 Dose: Not Given Documented by: Dexamethasone Sodium Phosphate (Decadron) 6 mg IV Q24 ANA MARIA Guaifenesin (Robitussin) 20 ml PO Q4H PRN PRN PRN Reason: COUGH Heparin Sodium (Porcine) (Heparin Na) 0 unit IV UD PRN; Protocol PRN Reason: dose adjustment Ceftriaxone Sodium (Rocephin) 1 gm in 50 mls @ 100 mls/hr IV Q24 ANA MARIA Azithromycin 500 mg/ Dextrose 255 mls @ 250 mls/hr IV Q24 ANA MARIA Heparin Sodium/Dextrose () 25,000 units in 250 mls @ 12 mls/hr IV .[id number] [facility]; Protocol Last Titration: 02/19/20 00:15 Dose: 1,200 units/hr, 12 mls/hr Documented by: Ondansetron HCl (Zofran) 4 mg IV Q8H PRN PRN PRN Reason: NAUSEA/VOMITING Pantoprazole Sodium (Protonix) 40 mg PO DAILY [facility] Senna/Docusate Sodium (Senokot-S, Saloni-Colace) 2 tablet PO BID PRN PRN PRN Reason: Constipation Sodium Chloride () 10 - 40 ml IV UD PRN PRN Reason: SALINE FLUSH Zolpidem Tartrate (Ambien (Generic)) 5 mg PO QHS PRN PRN PRN Reason: INSOMNIA STROKE Vital Signs/Narrative: Vital Signs Pulse 02/19/20 04:00 50 L Medical Necessity - Tobacco Use Smoking Status: Never smoker Assessment/Plan All Active Problems (Last Updated 02/18/20 @ 14:[address] Starr Richardson MD) COVID-19 (Acute) This is a 69 years old female patient who is admitted for shortness of breath with productive cough, was diagnosed with COVID-19 a week ago prior to admission, was on Decadron and doxycycline without improvement, multifocal bilateral pulmonary opacities and right mid and distal pulmonary embolism on chest CT PA. #1 acute COVID-19 viral bilateral pneumonia: Chest x-ray and chest CT scan reviewed. ID has been consulted. On IV Rocephin and Zithromax. COVID-19 precaution. On IV Decadron. CRP is elevated. 2. Right middle and lower lobe distal PE: Patient is on IV heparin. Changed to Lovenox therapeutic dose. Troponin is negative. BNP ordered #3 GERD: Continue PPI. #4 osteoarthritis: Tylenol as needed, patient has been on Fosamax weekly which will be held. #5 DVT prophylaxis: On Lovenox subcu Inpatient E&M: 03014 Subs Hosp L2
[2020-02-19 07:47] LABS: Anion Gap 5 (5-15); BUN 11 mg/dL (7-18); BUN/Creat Ratio 13.1 RATIO (10-20); Calcium,Total 8.9 mg/dL (8.5-10.1); Chloride 110 mmol/L (98-107); Creatinine, Serum 0.84 mg/dL (0.55-1.02); EST Glomerular Filtration Rate 72 mL/min (>60); Est Glom Filt Rate - Afr Amer 87 mL/min (>60); Estimated Creatinine Clearance 60.84 ml/min; Glucose 165 mg/dL (74-106); Sodium Level 142 mmol/L (136-145)
[2020-02-19] MEDS: Pantoprazole Sodium 40 MG Tablet PO (08:59)
[2020-02-19] MEDS: dexAMETHasone 4 MG/ML Vial 6 MG IV (09:00)
[2020-02-19] MEDS: Enoxaparin 80 MG/0.8 ML Syringe SC ×2 (09:24→20:25)
[2020-02-19 09:51] LABS: Bacteria 0 SEEN /hpf (None Seen); Mucous, Urine 0 SEEN /hpf (<or=2+); Red Blood Cells-Urine 0 SEEN /hpf (0-5); Squamous Epithelial Cells - UA 0 SEEN /hpf (5-10); White Blood Cells 0 SEEN /hpf (0-5)
[2020-02-19 09:51] LABS: Absolute Lymphocyte Count 0.79 X10^3/uL (0.83-4.51); Absolute Neutrophil Count 2.9 X10^3/uL (2.0-7.7); Basophil# 0.01 X10^3/uL; Basophil% 0.2 % (0-1); Hematocrit 36.2 % (37-47); Hemoglobin 12.3 g/dL (12.0-15.0); Lymphocyte # 0.79 X10^3/ul (4.0); Lymphocyte % 18.9 % (19-41); Mean Corpuscular Hgb 33.6 pg (27.0-32.0); Mean Corpuscular Volume 98.9 fL (81-99); Mean Platelet Vol. 11.6 fl (6.2-12.0); Monocyte# 0.39 X10^3/uL; Monocyte% 9.4 % (0-10); NRBC Flagged by Analyzer 0 % (0-5); Neutrophil # 2.94 X10^3/uL (2.7-7.7); Neutrophil % 70.5 % (47-70); Platelet Count 227 K/mm3 (150-450); RBC Distribution Width SD 43.9 fl (35.1-43.9); Red Blood Count 3.66 M/mm3 (4.2-5.4); White Blood Count 4.2 K/mm3 (4.4-11.0)
[2020-02-19 09:53] LABS: Color, Urine Yellow (Yellow); Glucose, Dipstick Normal (Normal); Ketone-Dipstick Negative (Negative); Leukocyte Esterase-Dipstick Negative /ul (Negative); Nitrite-Dipstick Negative (Negative); Occult Blood-Urine Negative /ul (Negative); Protein-Dipstick Negative (Negative); Urine Bilirubin Dipstick Negative (Negative); Urine Clarity Clear (Clear); Urine Urobilinogen Normal (Normal)
--- NOTE | 2020-02-19 10:11 | CON.PCM_ITS ---
Problem List (1) COVID-19 Status: Acute Reason for Consult: covid Consulted by: Dr. Richardson History of Present Illness: The patient is a 69 year old F developed cough, headache, congestion, fever about 3 weeks ago. No change in taste/smell, no n/v/d, no aches. No sick contacts. has been feeling fine. She saw PCP, thought it was sinus infection, did not improve with abx. Covid (+) 02/10, but now with several days worsening dyspnea and fatigue. Sat down to 90% in ED. CT showed PEs. Admitted on ceftriaxone/azithro and dex. Full ROS performed and neg except as noted above. - Medical History Past Medical History (Chronic Problems): Chronic Problems (Last Updated 02/18/20 @ 14:[address] Starr Richardson MD) GERD (gastroesophageal reflux disease) (Chronic) Arthritis (Chronic) Allergies/Adverse Reactions: Allergies No Known Allergies Allergy (Verified 06/02/19 04:49) Home Medications: Ambulatory Orders Medication Instructions Recorded Alendronate Sodium [Fosamax] 70 mg PO FR 02/18/20 Cholecalciferol (Vitamin D3) 2,000 unit PO DAILY 02/18/20 [Vitamin D3] Codeine Phosphate/Guaifenesin 10 ml PO Q4H PRN PRN 02/18/20 [Virtussin AC 10-100 mg/5 ml Lq] Colestipol HCl 2 gm PO DAILY 02/18/20 Cyanocobalamin (Vitamin B-12) 2,500 mcg PO DAILY 02/18/20 [Vitamin B12] Doxycycline [Vibramycin] 100 mg PO BID 02/18/20 Pantoprazole Sodium [Protonix] 40 mg PO DAILY 02/18/20 - Social History Tobacco Use: non-smoker Vital Signs Temp Pulse Resp BP Pulse Ox 98.1 F 78 18 134/68 H 97 02/19/20 08:00 02/19/20 08:00 02/19/20 08:00 02/19/20 08:00 02/19/20 08:00 Oxygen Flow Rate (L/min) 2 Oxygen Delivery Method Nasal Cannula Weight: 83.6 kg Body Mass Index (BMI) 29.7 Laboratory Tests Past 24 Hrs 02/18/20 02/18/20 02/18/20 12:40 12:40 12:40 WBC 4.6 RBC 3.74 L Hgb 12.7 Hct 37.8 MCV 101.1 H MCH 34.0 H MCHC 33.6 RDW Std Deviation 45.9 H RDW Coeff of Gertrudis 12.3 Plt Count 205 MPV 10.9 Immature Gran % (Auto) 1.100 H Neut % (Auto) 67.5 Lymph % (Auto) 19.3 [place] % (Auto) 10.4 H Eos % (Auto) 1.5 Baso % (Auto) 0.2 Absolute Neuts (auto) 3.1 Absolute Lymphs (auto) 0.89 Nucleated RBC % 0 ESR 13 PT INR APTT D-Dimer Quant (PE/DVT) Sodium 139 Potassium 3.6 Chloride 106 Carbon Dioxide 29.0 Anion Gap 4 L BUN 13 Creatinine 0.93 Estim Creat Clear Calc 54.95 Est GFR (MDRD) Af Amer 78 Est GFR (MDRD) Non-Af 64 BUN/Creatinine Ratio 14.0 Glucose 97 Calcium 8.7 Total Bilirubin Direct Bilirubin AST ALT Alkaline Phosphatase Total Creatine Kinase Troponin I < 0.015 C-React Prot Ext Range B-Natriuretic Peptide Total Protein Albumin Globulin Urine Color Urine Clarity Urine pH Ur Specific [place] Urine Protein Urine Glucose (UA) Urine Ketones Urine Occult Blood Urine Nitrite Urine Bilirubin Urine Urobilinogen Ur Leukocyte Esterase Urine RBC Urine WBC Ur Squamous Epith Cells Urine Bacteria Urine Mucus 02/18/20 02/18/20 02/18/20 12:40 12:40 17:20 WBC RBC Hgb Hct MCV MCH MCHC RDW Std Deviation RDW Coeff of Gertrudis Plt Count MPV Immature Gran % (Auto) Neut % (Auto) Lymph % (Auto) [place] % (Auto) Eos % (Auto) Baso % (Auto) Absolute Neuts (auto) Absolute Lymphs (auto) Nucleated RBC % ESR PT 13.8 INR 1.1 APTT 25.2 D-Dimer Quant (PE/DVT) 10.07 H* Sodium Potassium Chloride Carbon Dioxide Anion Gap BUN Creatinine Estim Creat Clear Calc Est GFR (MDRD) Af Amer Est GFR (MDRD) Non-Af BUN/Creatinine Ratio Glucose Calcium Total Bilirubin 0.80 Direct Bilirubin 0.23 AST 21 ALT 25 Alkaline Phosphatase 89 Total Creatine Kinase 15 L Troponin I C-React Prot Ext Range 56.80 H B-Natriuretic Peptide Total Protein 6.4 Albumin 3.2 Globulin 3.2 Urine Color Urine Clarity Urine pH Ur Specific [place] Urine Protein Urine Glucose (UA) Urine Ketones Urine Occult Blood Urine Nitrite Urine Bilirubin Urine Urobilinogen Ur Leukocyte Esterase Urine RBC Urine WBC Ur Squamous Epith Cells Urine Bacteria Urine Mucus 02/18/20 02/19/20 02/19/20 23:45 06:45 06:45 WBC 4.2 L RBC 3.66 L Hgb 12.3 Hct 36.2 L MCV 98.9 MCH 33.6 H MCHC 34.0 RDW Std Deviation 43.9 RDW Coeff of Gertrudis 12.0 Plt Count 227 MPV 11.6 Immature Gran % (Auto) 1.000 H Neut % (Auto) 70.5 H Lymph % (Auto) 18.9 L [place] % (Auto) 9.4 Eos % (Auto) 0.0 Baso % (Auto) 0.2 Absolute Neuts (auto) 2.9 Absolute Lymphs (auto) 0.79 L Nucleated RBC % 0 ESR PT INR APTT 77.8 H D-Dimer Quant (PE/DVT) Sodium 142 Potassium 4.0 Chloride 110 H Carbon Dioxide 27.0 Anion Gap 5 BUN 11 Creatinine 0.84 Estim Creat Clear Calc 60.84 Est GFR (MDRD) Af Amer 87 Est GFR (MDRD) Non-Af 72 BUN/Creatinine Ratio 13.1 Glucose 165 H Calcium 8.9 Total Bilirubin Direct Bilirubin AST ALT Alkaline Phosphatase Total Creatine Kinase Troponin I C-React Prot Ext Range B-Natriuretic Peptide Total Protein Albumin Globulin Urine Color Urine Clarity Urine pH Ur Specific [place] Urine Protein Urine Glucose (UA) Urine Ketones Urine Occult Blood Urine Nitrite Urine Bilirubin Urine Urobilinogen Ur Leukocyte Esterase Urine RBC Urine WBC Ur Squamous Epith Cells Urine Bacteria Urine Mucus 02/19/20 02/19/20 02/19/20 06:45 06:45 09:05 WBC RBC Hgb Hct MCV MCH MCHC RDW Std Deviation RDW Coeff of Gertrudis Plt Count MPV Immature Gran % (Auto) Neut % (Auto) Lymph % (Auto) [place] % (Auto) Eos % (Auto) Baso % (Auto) Absolute Neuts (auto) Absolute Lymphs (auto) Nucleated RBC % ESR PT INR APTT 132.3 H* D-Dimer Quant (PE/DVT) Sodium Potassium Chloride Carbon Dioxide Anion Gap BUN Creatinine Estim Creat Clear Calc Est GFR (MDRD) Af Amer Est GFR (MDRD) Non-Af BUN/Creatinine Ratio Glucose Calcium Total Bilirubin Direct Bilirubin AST ALT Alkaline Phosphatase Total Creatine Kinase Troponin I C-React Prot Ext Range B-Natriuretic Peptide Pending Total Protein Albumin Globulin Urine Color Yellow Urine Clarity Clear Urine pH 6.0 Ur Specific [place] 1.010 Urine Protein Negative Urine Glucose (UA) Normal Urine Ketones Negative Urine Occult Blood Negative Urine Nitrite Negative Urine Bilirubin Negative Urine Urobilinogen Normal Ur Leukocyte Esterase Negative Urine RBC 0 SEEN Urine WBC 0 SEEN Ur Squamous Epith Cells 0 SEEN Urine Bacteria 0 SEEN Urine Mucus 0 SEEN - Other Studies Radiology: [] reviewed Other Studies: [] Route of nutrition/ use of supplements: [] Nutritional Intake: [] IV Site: [] Siegel Catheter: [] - Physical Exam General: Alert, Oriented x3, Cooperative, No apparent distress HEENT: Atraumatic, PERRLA, EOMI Neck: Supple, No Nodes Lungs: Clear to auscultation, Normal air movement, Diminished Cardiovascular: Regular rate, Regular Rhythm, No murmurs Abdomen: Soft, Non Tender, Non-Distended Extremities: No edema Skin: No rashes IV Site: Peripheral, without redness Musculoskeletal: No Tenderness to Palpation of Joints or Extremities Neurological: Cranial nerves II-XII grossly intact - Assessment/Plan Antibiotics: [] Assessment/Plan: [] Active and Suspected Problems (Last Updated 02/18/20 @ 14:[address] Starr Richardson MD) Community acquired pneumonia (Suspected) COVID-19 (Acute) covid with PE - on anticoagulation now. On dex, will change to PO. Sats are generally 96% on RA. should quarantine for another week. Given sat and timeframe of illness, I do not see a role for plasma or remdesivir at this point. No sign of bacterial infection, will stop ceftriaxone/azithro. Will follow, thank you, chang Núñez.
--- NOTE | 2020-02-19 10:17 | NURSING ---
RN CM Assessment Called patient Gonzalo Rucker cell [phone], introduced role of RN and agrees to s/w this freelance copywriter to complete assessment. Patient is currently on COVID isolation. Care providers, pharmacy, and demographics verified. Admit Dx: COVID19, possible secondary bacterial PNA, Hypoxia Re-Admit: No Barriers/Issues: Patient lives with Gonzalo whom states is currently well himself and exercises 6x/week Cari. Per H&P patient was diagnosed x1 week ago with COVID and taking Decadron and Doxycycline without improvement. Discussed possible home quarantine patient from in home upon discharge, per he has been around patient already the past couple weeks. PCP: Luiz Gomez Specialists: None Preferred [facility]acy: [facility] Insurance: Albert Anaya Rx Benefit: Yes LNOK: Gonzalo Rucker LW/HPOA: None. aware if they would like information upon discharge to notify staff, aware they can return as an outpatient to complete advanced directives with social services aide. Living Arrangements: Lives with in a H, 1 step to enter home. ADL?s: Independent with ambulation and ADLs Transportation: Both patient and drive DME: None HHC: None SNF: None Goal: TBD. Per it will be up to his per hospital recommendations. Aware RNCM will continue to follow for any needs. DC PLAN: TBD, RNCM to f/u on PT/OT eval and possible Home O2 need. In Network DME: [employer], [employer], [employer], [facility]. [facility] In [facility] SNF- [facility], Rafael NICHOLSON. [facility], [facility]
--- NOTE | 2020-02-19 11:53 | NT.THERAPY_ITS ---
Nutrition Therapy Report - History Nutrition Services has been consulted to:: Manage nutrient details of diet order Current diet / nutrition support order:: regular - Anthropometric Measurements Height:: 5 ft 6 in Weight:: 83.6 kg Body Mass Index (BMI):: 29.7 - Relevant Labs Relevant Labs:: WBC 4.2 K/mm3 (4.4-11.0) L 02/19/20 06:45 RBC 3.66 M/mm3 (4.2-5.4) L 02/19/20 06:45 Hct 36.2 % (37-47) L 02/19/20 06:45 MCV 101.1 fL (81-99) H 02/18/20 12:40 MCH 33.6 pg (27.0-32.0) H 02/19/20 06:45 RDW Std Deviation 45.9 fl (35.1-43.9) H 02/18/20 12:40 Immature Gran % (Auto) 1.000 % (0.0-0.9) H 02/19/20 06:45 Neut % (Auto) 70.5 % (47-70) H 02/19/20 06:45 Lymph % (Auto) 18.9 % (19-41) L 02/19/20 06:45 [place] % (Auto) 10.4 % (0-10) H 02/18/20 12:40 Absolute Lymphs (auto) 0.79 X10^3/uL (0.83-4.51) L 02/19/20 06:45 APTT 132.3 Seconds (24.1-36.2) H* 02/19/20 06:45 D-Dimer Quant (PE/DVT) 10.07 FEU/ug/m (0.27-0.49) H* 02/18/20 12:40 Chloride 110 mmol/L (98-107) H 02/19/20 06:45 Anion Gap 4 (5-15) L 02/18/20 12:40 Glucose 165 mg/dL (74-106) H 02/19/20 06:45 Total Creatine Kinase 15 U/L (26-192) L 02/18/20 12:40 C-React Prot Ext Range 56.80 mg/L (0.0-3.0) H 02/18/20 12:40 - Assessment Food / Nutrition-Related History:: Spoke w/ pt via room phone as pt currently in isolation d/t COVID-19. 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 Described fair intake at breakfast this AM. No special diet followed normally at home. Has been having chronic diarrhea after cholecystectomy. Believes last wt at PCP office was 189.9# 1 week ago, CBW 184.3#-3% wt loss x 1 week, significant for acute malnutrition. Noted elevated blood glucose- no hx of DM, on steroid. 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 Evidence of Malnutrition Exists:: Yes Severe PCM:: Acute Illness - Nutrition Intervention Nutrition Prescription:: [id number] calories, 70-80 g protein per day - Food / Nutrient Delivery Interventions Summary of nutrition intervention:: Discussed regular diet and menu options w/ pt. Pt believes appetite/intake is improving and declines ONS at this time. Aware RDN available if PO intake fails to improve. Nutrition support ordered as / adjusted to:: continue regular diet; ensure enlive w/ meals if PO at meals fails Nutrition education provided?: Yes - see above - MNT Monitoring MNT Follow-up in:: 3-5 days
[2020-02-19 11:54] LABS: BNP,B-Type NATRIURETIC PEPTIDE 48.1 pg/mL (0-100)
[2020-02-19] MEDS: dexAMETHasone 4 MG Tablet 6 MG PO (13:59)
[2020-02-20] VITALS (9 sets, daily range): BP systolic 132–136; BP diastolic 68–85; PULSE 50–80; RESP 17–21; TEMP 36.2–36.4; O2SAT 89–98
[2020-02-20 03:35] LABS: Absolute Lymphocyte Count 0.77 X10^3/uL (0.83-4.51); Basophil# 0.01 X10^3/uL; Basophil% 0.1 % (0-1); Hematocrit 35.1 % (37-47); Lymphocyte # 0.77 X10^3/ul (4.0); Lymphocyte % 10.6 % (19-41); Mean Corp Hgb Conc 34.2 g/dL (32-36); Mean Corpuscular Hgb 34.5 pg (27.0-32.0); Mean Corpuscular Volume 100.9 fL (81-99); Mean Platelet Vol. 11.2 fl (6.2-12.0); Monocyte# 0.44 X10^3/uL; Monocyte% 6.1 % (0-10); NRBC Flagged by Analyzer 0 % (0-5); Neutrophil # 5.95 X10^3/uL (2.7-7.7); Neutrophil % 82.2 % (47-70); Platelet Count 269 K/mm3 (150-450); RBC Distribution Width CV 11.9 % (11.6-14.6); Red Blood Count 3.48 M/mm3 (4.2-5.4); White Blood Count 7.2 K/mm3 (4.4-11.0)
[2020-02-20 04:28] LABS: ALB/GLOB Ratio 0.9 RATIO (0.9-2.4); AST(SGOT) 9 U/L (15-37); Alanine Aminotransfer ALT/SGPT 19 U/L (13-56); Albumin, Serum 2.9 g/dL (3.2-5.0); Alkaline Phosphatase 78 U/L (45-117); Anion Gap 4 (5-15); BUN 13 mg/dL (7-18); BUN/Creat Ratio 15.6 RATIO (10-20); Calcium,Total 8.7 mg/dL (8.5-10.1); Chloride 109 mmol/L (98-107); Creatinine, Serum 0.83 mg/dL (0.55-1.02); EST Glomerular Filtration Rate 73 mL/min (>60); Est Glom Filt Rate - Afr Amer 88 mL/min (>60); Estimated Creatinine Clearance 61.57 ml/min; Globulin 3.2 g/dL (2.2-4.2); Glucose 166 mg/dL (74-106); Potassium 3.9 mmol/L (3.5-5.1); Protein, Total 6.1 g/dL (6.4-8.2); Sodium Level 143 mmol/L (136-145)
[2020-02-20] MEDS: dexAMETHasone 4 MG Tablet 6 MG PO (09:59)
[2020-02-20] MEDS: Enoxaparin 80 MG/0.8 ML Syringe SC (10:00)
[2020-02-20] MEDS: Pantoprazole Sodium 40 MG Tablet PO (10:00)
--- NOTE | 2020-02-20 11:36 | DCINST_ITS ---
- Discharge Diagnoses Current Active Problems: Current Active and Chronic Problems (Last Updated 02/18/20 @ 14:[address] Starr Richardson MD) COVID-19 (Acute) You will use the following diet at home:: No restrictions Your food should be the consistency of: Regular Your liquids should be the consistency of: Regular/Thin Discharge Activity: Return to Normal Activity Weight Bearing Status: Full weight bearing Additional Instructions: take only Tylenol for pain-do not take Ibuprofen, Alleve, or Aspirin Allergies/Adverse Reactions: Allergies No Known Allergies Allergy (Verified 06/02/19 04:49) Medications to take at Discharge Alendronate Sodium [Fosamax] 70 mg PO FR 02/18/20 Cholecalciferol (Vitamin D3) [Vitamin D3] 2,000 unit PO DAILY 02/18/20 Codeine Phosphate/Guaifenesin [Virtussin AC 10-100 mg/5 ml Lq] 10 ml PO Q4H PRN PRN 02/18/20 Colestipol HCl 2 gm PO DAILY 02/18/20 Cyanocobalamin (Vitamin B-12) [Vitamin B12] 2,500 mcg PO DAILY 02/18/20 Pantoprazole Sodium [Protonix] 40 mg PO DAILY 02/18/20 Apixaban [Eliquis] 5 mg PO BID #60 tab 02/20/20 Apixaban [Eliquis] 10 mg PO BID #28 tab 02/20/20 Dexamethasone [Decadron] 6 mg PO DAILYCM #11 tab 02/20/20 The following prescriptions were given: Dexamethasone [Decadron] 6 mg PO DAILYCM #11 tab Transmission Status: Pending to [facility] Apixaban [Eliquis] 10 mg PO BID #28 tab Transmission Status: Pending to [id number] Apixaban [Eliquis] 5 mg PO BID #60 tab Transmission Status: Pending to [facility] Primary Care Physician: Luiz Gomez DO [Primary Care Provider] - Please follow up with your Primary Care Physician in: 2 weeks Test Results: Test results from this visit will be discussed in further detail at your follow- up appointment, if applicable.
--- NOTE | 2020-02-20 11:54 | CASEMGMT ---
CHAD OJEDA note: Pt will be going home on Eliquis, which has been e-scribed to [facility] pharmacy. The scripts sent by Dr Kent are for 5 mg, 2 tabs BID x 7 days and then for 5 mg, 1 tab, daily x 21 days. Call to [facility] and spoke w/Vignesh. Per Vignesh, pt's insurance will not cover any of the cost for 2 tabs BID x 7 days but it will cover for a large portion of the daily dose for 21 days (original cost was $563, pt's co-pay will be $95). 30-day free trial offer card applied to the 1st script at this time for 7 days and pt will have no cost for this. Pt's co-pay for the 21-day script will be $95. Call placed to pt's room at this time and she was made aware of all of the above. She states they are able to afford the $95. She states pt's will be picking pt's prescriptions. She also states was tested for COVID-19 and it was negative. Per Dr Kent, pt will not need to isolate any longer for COVID. Pt declines need for HHC or OP therapy at this time, stating, I think I'm doing pretty good. She states pt will be able to help her as needed. She was made aware, if in the future, she feels she would benefit from HHC or OP therapy to talk to her PCP. She voices understanding. She denies having any other needs, questions, or concerns w/going home @ discharge. Justo VAUGHN RN, CM
--- NOTE | 2020-02-20 12:24 | PHA.DC.MC ---
Pharmacy Service has performed discharge medication reconciliation and counseling for this patient. 1. APIXABAN 10MG PO BID X 7 DAYS THEN 5MG PO BID THEREAFTER 2. DEXAMETHASONE 6MG PO DAILY X 7 DAYS The patient's discharge medication list was reviewed for discrepancies and discrepancies were resolved. Home Medications Alendronate Sodium [Fosamax] 70 mg PO FR 02/18/20 Cholecalciferol (Vitamin D3) [Vitamin D3] 2,000 unit PO DAILY 02/18/20 Codeine Phosphate/Guaifenesin [Virtussin AC 10-100 mg/5 ml Lq] 10 ml PO Q4H PRN PRN 02/18/20 Colestipol HCl 2 gm PO DAILY 02/18/20 Cyanocobalamin (Vitamin B-12) [Vitamin B12] 2,500 mcg PO DAILY 02/18/20 Pantoprazole Sodium [Protonix] 40 mg PO DAILY 02/18/20 Apixaban [Eliquis] 5 mg PO BID #60 tab 02/20/20 Apixaban [Eliquis] 10 mg PO BID #28 tab 02/20/20 Dexamethasone [Decadron] 6 mg PO DAILYCM #11 tab 02/20/20 The patient was counseled on the following discharge medications and changes in medications for homegoing were reviewed. The Reason for Use, instructions for use, and potential side effects were reviewed for all new medications. The patient's questions regarding all of their medications were answered. The patient was able to verbally demonstrate an understanding of their discharge medications. Discharge counseling performed via telephone due to COVID precautions.
--- NOTE | 2020-02-22 07:35 | DS.PCM_ITS ---
Discharge Date and Diagnosis - Problem List Patient Problems: Active and Suspected Problems (Last Updated 02/18/20 @ 14:[address] Starr Richardson MD) Community acquired pneumonia (Suspected) COVID-19 (Acute) Date of Admission: 02/18/20 Date of Discharge: 02/20/20 - Primary Discharge Diagnosis Acute Problems: Active Problems (Last Updated 02/18/20 @ 14:[address] Starr Richardson MD) #1 COVID-19 infection (Acute) #2 Right-sided pulmonary embolism related to COVID-19 infection #3 community-acquired pneumonia was ruled out #4 hypoxia secondary to COVID-19 infection Suspected Problems: Suspected Problems (Last Updated 02/18/20 @ 14:[address] Starr Richardson MD) Community acquired pneumonia (Suspected) - Secondary Discharge Diagnosis Chronic Problems: Chronic Problems (Last Updated 02/18/20 @ 14:[address] Starr Richardson MD) GERD (gastroesophageal reflux disease) (Chronic) Arthritis (Chronic) Hospital Course and Treatment Operations: None Procedures: None Summary of Care Provided: The patient is a 69 year old F was seen in the emergency room at [facility] with a chief complaint of shortness of breath, the patient had been diagnosed with COVID-19 infection approximately a week ago, she complained of worsening shortness of breath over the last 2 to 3 days. Chest x- ray was obtained which showed mild increased markings at the lung bases worse on the left side, patient's D-dimer was elevated at 10.07, the patient required 2 L of oxygen to maintain her pulse ox. Patient was admitted to [place] [address], she was seen in consultation by infectious diseases and for a brief period of time was given IV antibiotics for suspected community-acquired pneumonia. Infectious diseases did not feel she had a community-acquired pneumonia, patient had a CT of her chest which showed evidence of pulmonary emboli and she was placed on systemic anticoagulation. Patient did well during her hospital stay was able to be weaned off oxygen. On 02/20/2020, patient was seen and examined: On examination she appeared in good health and spirits, she does not appear to be in any distress. Vital signs as documented. Skin warm and dry and without overt rashes. Neck without JVD, thyroid appears normal, trachea is midline, neck is supple. Lungs clear, normal air movement was noted. Heart exam notable for regular rhythm, normal sounds and absence of murmurs, rubs or gallops. Abdomen unremarkable and without evidence of organomegaly, masses, or abdominal aortic enlargement, bowel sounds are present in all 4 quadrants, no abdominal tenderness was noted. Extremities nonedematous, no cyanosis was noted, no clubbing was noted. Neuro: Cranial nerves II through XII are grossly intact, no focal motor deficits were noted, sensation to light touch and pinprick is intact, motor exam 5/5 throughout. Psych: Patient is alert and oriented x3, she does not appear anxious or depressed, she does not appear agitated. Patient was discharged home in stable condition on 02/20/2020, patient did not require convalescent plasma or remdesivir. Patient Problems: Active and Suspected Problems (Last Updated 02/18/20 @ 14:[address] Starr Richardson MD) Community acquired pneumonia (Suspected) COVID-19 (Acute) - Physical Exam Vitals/I&O's: Vital Signs Temp Pulse Resp BP Pulse Ox 97.6 F L 80 20 H 136/68 H 96 02/20/20 11:20 02/20/20 11:20 02/20/20 11:20 02/20/20 11:20 02/20/20 11:20 Oxygen Flow Rate (L/min) 2 Oxygen Delivery Method Room Air Weight: 83.6 kg Body Mass Index (BMI) 29.7 Intake and Output for Last 24 Hours 02/20/20 02/21/20 02/22/20 23:59 23:59 23:59 Intake Total 360 / 360 Balance 360 / 360 Discharge Activity: Return to Normal Activity Weight Bearing Status: Full weight bearing Home Medications: Medications to take at Discharge Alendronate Sodium [Fosamax] 70 mg PO FR 02/18/20 Cholecalciferol (Vitamin D3) [Vitamin D3] 2,000 unit PO DAILY 02/18/20 Codeine Phosphate/Guaifenesin [Virtussin AC 10-100 mg/5 ml Lq] 10 ml PO Q4H PRN PRN 02/18/20 Colestipol HCl 2 gm PO DAILY 02/18/20 Cyanocobalamin (Vitamin B-12) [Vitamin B12] 2,500 mcg PO DAILY 02/18/20 Pantoprazole Sodium [Protonix] 40 mg PO DAILY 02/18/20 Apixaban [Eliquis] 5 mg PO BID #60 tab 02/20/20 Apixaban [Eliquis] 10 mg PO BID #28 tab 02/20/20 Dexamethasone [Decadron] 6 mg PO DAILYCM #11 tab 02/20/20 Following Prescriptions Were Given to Patient: Dexamethasone [Decadron] 6 mg PO DAILYCM #11 tab Transmission Status: Received by [facility] Apixaban [Eliquis] 10 mg PO BID #28 tab [email or web address] Apixaban [Eliquis] 5 mg PO BID #60 tab Transmission Status: [facility] Primary Care Physician: Luiz Gomez DO [Primary Care Provider] - Please follow up with your Primary Care Physician in: 2 weeks Disposition: Home Minutes spent on discharge:: 31 Patient Condition:: Stable Medical Necessity - Tobacco Use Smoking Status: Never smoker Meaningful Use Info Meaningful Use Diagnoses (Choose all that apply): None applicable Inpatient E&M: [id number] [facility]
--- NOTE | 2020-02-22 19:04 | CASEMGMT ---
CHAD CM Discharge Follow-up Phone Call: LORRI: Gabriela Strata: 1 Call Date: 02/22/2020 Discharge Date: 02/21/2020 Time of Call: 1900 Admitting Diagnosis: PE r/t COVID-19 Infection Discharge follow-up call placed to pt. Pt states she is doing better since being discharged. Denies any issues with SOB. Reviewed medications and pt is taking the 10mg of Eliquis and aware to then take 5mg after the 10mg are completed. Pt states she also continues to take the decadron. Pt states she has not made her follow-up appointment with Dr. Gomez yet but states that she will. Pt denied any further questions or concerns. Padilla Francois RN CM
== END 2020-02-20 13:40 | disposition home or self-care (01) | DRG 177 ==
LOC: ED 14:34 → ICU 15:28
PROVIDERS: Internal Medicine; Admitting Provider Hospitalist; Emergency Provider Emergency Medicine; PCP Family Medicine; Visit Provider Internal Medicine
DX: U07.1 COVID-19 (principal); I26.99 Other pulmonary embolism without acute cor pulmonale; E43 Unspecified severe protein-calorie malnutrition; R09.02 Hypoxemia; K21.9 Gastro-esophageal reflux disease without esophagitis; M19.90 Unspecified osteoarthritis, unspecified site; Z68.29 Body mass index [BMI] 29.0-29.9, adult
CPT/HCPCS: 71045; 71275; 80048; 80053; 80076; 81001; 82550; 83880; 84484; 85025; 85379; 85610; 85652; 85730; 86140; 86900; 86901; 93005; 97162; 97802; 99251; 99281; 99285; Q9967; A4216; G0463

== ENCOUNTER → 2020-03-05 10:54 | Outpatient (CLI) | payer MEDICARE, SELFPAY ==
[2020-02-19 11:55] VITALS: BMI 29.7
--- NOTE | 2020-03-05 11:00 | RAD_ITS ---
STUDY: X-RAY - PELVIS AND RIGHT HIP REASON FOR EXAM: Right groin pain. TECHNIQUE: 2 views of the pelvis and hip. COMPARISON: Radiographs 09/26/2017. FINDINGS: There are surgical clips in the pelvis. Normal bilateral iliac wings, sacroiliac joints and visualized sacrum. Normal bilateral superior and inferior pubic rami. Normal pubic symphysis. Normal bilateral ischial tuberosities. Normal visualized femoral head. Normal acetabulum. There are marginal osteophytes and moderate joint space narrowing of the superior lateral right hip joint. RAD/HIP, UNI W/ Pelvis 2-3 Views IMPRESSION: Right hip arthrosis. Electronically Signed: Cruz Chaudhari MD at 15:32 EDT Tel , Service support ,
== END ==
PROVIDERS: PCP Family Medicine; Referring Provider Family Medicine; Visit Provider Family Medicine
DX: M25.551 Pain in right hip (principal)
CPT/HCPCS: 73502

== ENCOUNTER → 2020-03-25 10:21 | Outpatient (CLI) | payer MEDICARE, SELFPAY ==
[2020-02-19 11:55] VITALS: BMI 29.7
[2020-03-25 12:31] LABS: Absolute Lymphocyte Count 1.57 X10^3/uL (0.83-4.51); Absolute Neutrophil Count 2.1 X10^3/uL (2.0-7.7); Basophil# 0.03 X10^3/uL; Basophil% 0.7 % (0-1); Eosinophil# 0.22 X10^3/uL; Eosinophils% 5.2 % (0-5); Hematocrit 41.9 % (37-47); Lymphocyte # 1.57 X10^3/ul (4.0); Lymphocyte % 36.9 % (19-41); Mean Corp Hgb Conc 33.4 g/dL (32-36); Mean Corpuscular Hgb 35.1 pg (27.0-32.0); Mean Platelet Vol. 11.2 fl (6.2-12.0); Monocyte# 0.33 X10^3/uL; Monocyte% 7.8 % (0-10); NRBC Flagged by Analyzer 0 % (0-5); Neutrophil # 2.08 X10^3/uL (2.7-7.7); Neutrophil % 48.9 % (47-70); Platelet Count 302 K/mm3 (150-450); RBC Distribution Width SD 49.3 fl (35.1-43.9); Red Blood Count 3.99 M/mm3 (4.2-5.4); White Blood Count 4.3 K/mm3 (4.4-11.0)
== END ==
PROVIDERS: PCP Family Medicine; Visit Provider Family Medicine
DX: Z51.81 Encounter for therapeutic drug level monitoring (principal)
CPT/HCPCS: 36415; 85025

== ENCOUNTER → 2020-06-12 11:44 | Outpatient (CLI) | payer MEDICARE, SELFPAY ==
[2020-02-19 11:55] VITALS: BMI 29.7
== END ==
PROVIDERS: PCP Family Medicine; Visit Provider Family Medicine
DX: Z20.828 Contact with and (suspected) exposure to other viral communicable diseases (principal)
CPT/HCPCS: 87635; U0005; U0003

== ENCOUNTER → 2020-10-13 16:24 | Outpatient (CLI) | payer MEDICARE, SELFPAY ==
[2020-10-13 08:20] VITALS: BMI 30.7
[2020-10-13 17:46] LABS: Absolute Lymphocyte Count 1.62 X10^3/uL (0.83-4.51); Absolute Neutrophil Count 4.8 X10^3/uL (2.0-7.7); Basophil# 0.03 X10^3/uL; Basophil% 0.4 % (0-1); Eosinophil# 0.22 X10^3/uL; Eosinophils% 3.1 % (0-5); Hematocrit 41.8 % (37-47); Hemoglobin 14.1 g/dL (12.0-15.0); Lymphocyte # 1.62 X10^3/ul (0.83-4.51); Lymphocyte % 22.9 % (19-41); Mean Corp Hgb Conc 33.7 g/dL (32-36); Mean Corpuscular Volume 100.7 fL (81-99); Mean Platelet Vol. 10.8 fl (6.2-12.0); Monocyte# 0.41 X10^3/uL; Monocyte% 5.8 % (0-10); NRBC Flagged by Analyzer 0 % (0-5); Neutrophil # 4.77 X10^3/uL (2.7-7.7); Neutrophil % 67.4 % (47-70); Platelet Count 278 K/mm3 (150-450); RBC Distribution Width CV 12.3 % (11.6-14.6); RBC Distribution Width SD 45.6 fl (35.1-43.9); Red Blood Count 4.15 M/mm3 (4.2-5.4); White Blood Count 7.1 K/mm3 (4.4-11.0)
[2020-10-13 17:56] LABS: Erythrocyte Sedimentation Rate 2 mm/hr (0-30)
[2020-10-13 18:10] LABS: ALB/GLOB Ratio 1.3 RATIO (0.9-2.4); AST(SGOT) 14 U/L (15-37); Alanine Aminotransfer ALT/SGPT 14 U/L (13-56); Albumin, Serum 3.9 g/dL (3.2-5.0); Alkaline Phosphatase 88 U/L (45-117); Anion Gap 7 (5-15); BUN 15 mg/dL (7-18); BUN/Creat Ratio 13.2 RATIO (10-20); Calcium,Total 9.1 mg/dL (8.5-10.1); Chloride 106 mmol/L (98-107); Creatinine, Serum 1.14 mg/dL (0.55-1.02); EST Glomerular Filtration Rate 50 mL/min (>60); Est Glom Filt Rate - Afr Amer 61 mL/min (>60); Globulin 3.1 g/dL (2.2-4.2); Glucose 87 mg/dL (74-106); Potassium 3.9 mmol/L (3.5-5.1); Sodium Level 142 mmol/L (136-145)
[2020-10-13 18:30] LABS: CRP 7.06 mg/L (0.0-3.0)
== END ==
PROVIDERS: PCP Family Medicine; Referring Provider Family Medicine; Visit Provider Family Medicine
DX: R10.9 Unspecified abdominal pain (principal)
CPT/HCPCS: 36415; 80053; 85025; 85652; 86140

== ENCOUNTER → 2020-10-15 13:49 | Outpatient (CLI) | payer MEDICARE, SELFPAY ==
[2020-10-13 08:20] VITALS: BMI 30.7
--- NOTE | 2020-10-15 13:58 | CT_ITS ---
STUDY: CT ABDOMEN AND PELVIS WITH CONTRAST REASON FOR EXAM: Female, 70 years old. Left lower quadrant pain with diarrhea. TECHNIQUE: Transaxial images were obtained from the dome of the diaphragm to the symphysis pubis with oral contrast. IV 100mL Isovue-300 was administered. Sagittal and coronal images were reconstructed. Individualized dose optimization techniques were used for this CT. COMPARISON: 06/02/2019 CT abdomen and pelvis. FINDINGS: Partially visualized lower chest: No acute finding. Bleb in the lingula and subsegmental atelectasis/scarring posteriorly similar to previous. Liver: No concerning lesions. Gallbladder and biliary tree: Status post cholecystectomy. No biliary ductal dilation. Pancreas: No pancreatic lesions or inflammation. Spleen: Normal size, no splenic lesions. Incidental calcified granulomas. Adrenal glands: No concerning masses. Kidneys and ureters: No hydronephrosis or renal stones. No concerning masses. No ureteral dilation. Bowel: Normal appendix. No obstruction or inflammation of the bowel. Sigmoid colon diverticulosis, no diverticulitis. Urinary bladder: No stones or wall thickening. Reproductive:Normal uterus and ovaries. Tubal ligation clips in place. Vascular: No abdominal aortic aneurysm. Patent portal and mesenteric veins. Retroperitoneal and peritoneal spaces: No ascites or free air. No retroperitoneal lesions. Osseous: No acute osseous abnormality. Abdominal and pelvic wall: No concerning findings. Any findings described in the findings sections and not included in the impression are incidental and do not require imaging follow-up. CT/Abdomen/Pelvis WITH Contrast IMPRESSION: No acute findings. Sigmoid colon diverticulosis, no diverticulitis. Electronically Signed: Kristian Case MD at 1:50 EDT Tel , Service support ,
== END ==
PROVIDERS: PCP Family Medicine; Referring Provider Family Medicine; Visit Provider Family Medicine
DX: R10.9 Unspecified abdominal pain (principal); R19.7 Diarrhea, unspecified
CPT/HCPCS: 74177; Q9967

== ENCOUNTER → 2020-10-27 16:09 | Outpatient (CLI) | payer MEDICARE, SELFPAY ==
[2020-10-13 08:20] VITALS: BMI 30.7
--- NOTE | 2020-10-27 16:20 | MRI_ITS ---
STUDY: MRI LUMBAR SPINE WITHOUT CONTRAST REASON FOR EXAM: Female, 70 years old. pain INTO HIPS BILATERALLY TECHNIQUE: Standardized fat and water weighted pulse sequences were obtained in the sagittal and axial planes. COMPARISON: None FINDINGS: T12-L1: Disc desiccation and broad-based disc bulge is present with no evidence of spinal canal narrowing or foraminal narrowing. Inferior endplate Normal lumbar lordosis. There is no substantial scoliosis. Normal conus medullaris that terminates at the L1 level. L1-2: Disc desiccation and preserved disc space is present. No significant spinal canal narrowing or foraminal narrowing. L2-3: Disc desiccation and preserved disc space is present. Minimal facet arthropathy is noted. No significant spinal canal narrowing or foraminal narrowing. L3-4: Disc desiccation with mild decreased disc space. No significant disc bulge, spinal canal narrowing or foraminal narrowing. L4-5: Moderate decreased disc space and degenerative disc changes with mild broad-based disc bulge resulting in mild right foraminal narrowing. No significant spinal canal narrowing. L5-S1: Disc desiccation and mild decreased disc space with no significant spinal canal narrowing or foraminal narrowing. Normal visualized sacral ala. Normal visualized paraspinous soft tissue structures. MRI/Spine Lumbar (Routine) IMPRESSION: Multilevel disc desiccation and minimal areas of decreased disc space with no significant spinal canal narrowing or foraminal narrowing. Electronically Signed: Miguelito Esparza DO at 17:20 EDT , Service support ,
== END ==
PROVIDERS: PCP Family Medicine; Referring Provider Orthopaedic Surgery; Visit Provider Orthopaedic Surgery
DX: M47.816 Spondylosis without myelopathy or radiculopathy, lumbar region (principal); M54.9 Dorsalgia, unspecified
CPT/HCPCS: 72148

== ENCOUNTER 2021-08-23 14:26 | Emergency (ER) | payer MEDICARE, SELFPAY ==
[2021-08-23 14:26] VITALS: BP 133/100; PULSE 85; RESP 16; TEMP 36.7; O2SAT 99; BMI 29.9
--- NOTE | 2021-08-23 15:16 | EDS_ITS ---
HPI HPI - GI History of Present Illness Chief Complaint: Abd Pain Informant: patient Abdominal Pain/Flank Pain Onset: Days (3) Context: Gradual Onset Timing: Intermittent Quality: Cramping Location: RLQ and LLQ Worsened by: - (Going to the bathroom) Relieved by: Nothing Nausea/Vomiting/Emesis GI Symptom: Negative for Nausea and Vomiting Diarrhea/Melena/Hematochezia GI Symptom: Positive for Diarrhea; Negative for Melena and Hematochezia Onset: Days (3) Stool Quality: Negative for Black, Maroon and BRB per rectum Associated Symptoms Associated Symptoms: Negative for Dysuria, Frequency and Hematuria Narrative Narrative: Patient presents with lower abdominal pain, and diarrhea for the past 3 days. Patient states it is intermittent. Patient states it is over the lower abdomen. Patient states it is worse whenever she goes to the bathroom. Patient states nothing makes it better. Patient denies any melena or hematochezia. Patient denies any nausea or vomiting. Patient denies any dysuria or hematuria. Patient denies any radiation of the pain. Patient denies any neck or back pain. Patient denies any fevers or chills. [facility] Medical History Arthritis Back problem Community acquired pneumonia COVID-19 Nasal polyps Nausea & vomiting Home Medications alendronate 70 mg PO FR 02/18/20 [History Last Taken 02/08/20] cholecalciferol (vitamin D3) 2,000 unit PO DAILY 02/18/20 [History Last Taken 02/17/20] colestipol 2 g PO DAILY 02/18/20 [History Last Taken 02/16/20] cyanocobalamin (vitamin B-12) 2,500 mcg PO DAILY 02/18/20 [History Last Taken 02/17/20] pantoprazole 40 mg PO DAILY 02/18/20 [History Last Taken 02/16/20] dexamethasone 6 mg PO DAILYCM #11 tab 02/20/20 [Rx Last Taken Unknown] apixaban 5 mg tablet 10 mg PO BID tab 10/13/20 [History Last Taken Unknown] omega-3 fatty acids 1,000 mg capsule 1,000 mg PO DAILY 10/13/20 [History Last Taken Unknown] zinc 50 mg tablet 50 mg PO DAILY 10/13/20 [History Last Taken Unknown] dicyclomine 20 mg PO TIDAC #20 capsule 08/23/21 [Rx Last Taken Unknown] Allergy/AdvReac Type Severity Reaction Status Date / Time apixaban [From Eliquis] Allergy Mild Itching Verified 08/23/21 14:29 cat dander Allergy Mild Itching Verified 08/23/21 14:29 dog dander Allergy Mild Itching Verified 08/23/21 14:29 grass pollen Allergy Mild Itching Verified 08/23/21 14:29 Family History (Updated 10/13/20 @ 08:39 by Iraida Busch) Mother Colon cancer Father Myocardial infarction Hypertension Grandmother Arthritis Surgical History History of cholecystectomy Hx of tonsillectomy S/P nasal polypectomy Social History household members: spouse housing: house Smoking Status: Never smoker alcohol intake: current alcohol intake frequency: a few times a week what type of physical activity do you participate in: none do you feel safe at home: Yes ROS ROS ED Constitutional Constitutional ED: Denies chills or fever(s) Eyes Eyes: Denies blurry vision or change in vision ENT ENT ED: Denies rhinorrhea or sore throat Cardiovascular Cardiovascular: Denies chest pain or palpitations Respiratory/Chest Respiratory/Chest: Denies cough or dyspnea Gastrointestinal Gastrointestinal: Reports abdominal pain and diarrhea; Denies melena, nausea or vomiting Genitourinary Genitourinary ED: Denies dysuria or hematuria Musculoskeletal Musculoskeletal: Denies back pain or neck pain Integumentary Denies abscess or rash Neurologic Neurologic: Denies headache(s) or weakness Allergic/Immunologic Allergic/Immunologic ED: Denies mouth swelling or urticaria EXAM Physical Exam Const Vital Signs: 08/23/21 14:26 08/23/21 16:26 08/23/21 18:00 Temperature 98.1 F Temperature Source Temporal Pulse Rate 85 66 88 Respiratory Rate 16 14 16 Blood Pressure 133/100 H 134/78 H 124/78 H Blood Pressure Mean 111 96 93 Pulse Ox 99 98 98 Oxygen Delivery Method Room Air Room Air Room Air Positive well nourished and well developed General Appearance ED: well developed HEENT Reports moist mucous membranes Neck supple and no JVD Resp normal respiratory effort and clear to auscultation bilaterally Cardio regular rate, regular rhythm and no murmurs GI normal to inspection, nondistended, normoactive bowel sounds Palpation: soft and tender LLQ, RLQ and suprapubic; Negative for guarding or rebound tenderness present Extremity normal to inspection General Extremety ED: Negative for edema or tenderness General Extremity: Negative for edema Neuro oriented x3, CN's II-XII intact bilaterally and no sensory deficits noted Sensorium / Orientation: alert Motor Exam: strength 5/5 throughout Psych mental status grossly normal Skin no rashes or lesions noted MDM MDM MDM Narrative Medical decision making narrative: Patient was given IV fluids, morphine, and Zofran. CBC was within normal limits. Comprehensive metabolic profile was essentially within normal limits. Lipase was normal. Urinalysis does not show any evidence of urinary tract infection. CT scan of the abdomen and pelvis was obtained. There appears to be some spasm of the sigmoid colon. There is no evidence of diverticulitis or colitis. There is no perforation. There is no obstruction. This was interpreted by the radiologist and reviewed by myself. Patient was advised of her findings. Patient was given a dose of Bentyl here. Patient was given a prescription for Bentyl. Patient was instructed to follow- up with her primary care physician in 3 to 5 days. Patient understood and was agreeable with the plan. All questions were answered. Lab Data Attestation: I reviewed the patient's lab results. Labs: Laboratory Results - last 24 hr 08/23/21 08/23/21 08/23/21 14:50 14:50 17:55 WBC 5.3 RBC 3.89 L Hgb 13.6 Hct 39.9 MCV 102.6 H MCH 35.0 H MCHC 34.1 RDW Std Deviation 46.8 H RDW Coeff of Gertrudis 12.5 Plt Count 233 MPV 10.6 Immature Gran % (Auto) 0.400 Neut % (Auto) 58.5 Lymph % (Auto) 22.5 [place] % (Auto) 8.9 Eos % (Auto) 9.1 H Baso % (Auto) 0.6 Absolute Neuts (auto) 3.1 Absolute Lymphs (auto) 1.19 Nucleated RBC % 0 Sodium 142 Potassium 4.0 Chloride 108 H Carbon Dioxide 29.0 Anion Gap 5 BUN 12 Creatinine 1.10 H Estim Creat Clear Calc 45.19 Est GFR (MDRD) Af Amer 63 Est GFR (MDRD) Non-Af 52 L BUN/Creatinine Ratio 10.9 Glucose 91 Calcium 8.6 Total Bilirubin 0.60 AST 12 L ALT 15 Alkaline Phosphatase 73 Total Protein 6.5 Albumin 3.6 Globulin 2.9 Albumin/Globulin Ratio 1.2 Lipase 81 Urine Color Yellow Urine Clarity Clear Urine pH 6.5 Ur Specific [place] 1.010 Urine Protein Negative Urine Glucose (UA) Normal Urine Ketones Negative Urine Occult Blood Negative Urine Nitrite Negative Urine Bilirubin Negative Urine Urobilinogen Normal Ur Leukocyte Esterase 25 H Urine RBC 0-5 SEEN Urine WBC 0-5 SEEN Ur Squamous Epith Cells 0-5 SEEN Urine Bacteria 0 SEEN Urine Mucus 0 SEEN Radiography Diagnostic Testing: Clinical Impression(s) from Imaging Studies Abdomen/Pelvis CT 08/23/21 15:20 IMPRESSION: 1. Findings may be indicative of mild spasm in the sigmoid colon. Otherwise, no evidence of an appendicitis, diverticulitis, colitis, intestinal obstruction. 2. Small normal kidneys without obstructive uropathy. 3. Post cholecystectomy. Normal bile ducts. 4. No pancreatitis. 5. No hernias, abscesses, or solid mass lesions. 6. Old moderate compression fractures at T12 vertebra and marked narrowing of the L4-5 intervertebral disc space. There are moderate osteophytic degenerative changes of the lumbar spine. Electronically Signed: Donny Hinson MD at 18:25 EDT , Discharge Plan Triage Chief Complaint: Abd Pain ED Provider: Ranjit Santana Dx/Rx/DC Orders Clinical Impression: Abdominal pain, GERD (gastroesophageal reflux disease) Instructions: ED Abdominal Pain Unkn Cause Fem Prescriptions: New dicyclomine 10 MG capsule 20 mg PO TIDAC Qty: 20 RF: 0 No Action apixaban 5 mg tablet 10 mg PO BID RF: 0 omega-3 fatty acids [Fish Oil Concentrate] 1,000 mg capsule 1,000 mg PO DAILY RF: 0 zinc 50 mg tablet 50 mg PO DAILY RF: 0 alendronate 70 MG tablet 70 mg PO FR RF: 0 colestipol 1 gram tablet 2 g PO DAILY RF: 0 pantoprazole 40 MG tablet 40 mg PO DAILY RF: 0 cholecalciferol (vitamin D3) 2,000 UNIT capsule 2,000 unit PO DAILY RF: 0 cyanocobalamin (vitamin B-12) 2,500 MCG tablet 2,500 mcg PO DAILY RF: 0 dexamethasone 4 MG tablet 6 mg PO DAILYCM Qty: 11 RF: 0 Primary Care Provider: Luiz Gomez Referrals: Luiz Gomez DO [Primary Care Provider] - 3-5 Days Disposition Disposition: Home, Self Care
--- NOTE | 2021-08-23 15:20 | CT_ITS ---
STUDY: CT ABDOMEN AND PELVIS WITH CONTRAST ENHANCEMENT OF 1710 HOURS ON 08/23/2021 REASON FOR EXAM: 71-year-old female with abdominal pain. RADIATION DOSAGE (If Supplied By Facility): CTDIvol = ( 16.44 ) mGy, DLP = ( 1061.08 ) mGycm TECHNIQUE: Transaxial images were obtained from the dome of the diaphragm to the symphysis pubis without oral contrast. IV 100mL Isovue-300 was administered. Sagittal and coronal images were reconstructed. Individualized dose optimization techniques were used for this CT. COMPARISON: 10/25/2020. FINDINGS: The visualized lung bases are unremarkable. The visualized portions of the heart are within normal limits. Normal liver. Status post cholecystectomy. Normal bile ducts. The post expiration common bile duct measures 0.95 cm in diameter. No evidence of calculi within the stomach. Multiple splenic phleboliths are noted. There is no evidence of a splenic abnormalities.. Normal pancreas; no pancreatitis or pancreatic mass lesions.. Normal bilateral adrenal glands. Small normal kidneys without obstructive uropathy. Normal visualized stomach. Normal small intestine. A suggestion of mild spasm in the sigmoid colon, but there is no distinct evidence of acute diverticulitis.. There are no findings of diverticulitis or colitis of the remainder of the colon.. The appendix is visualized and appears normal. No appendicitis. Appendix is best visualized in axial images 69 through 75. Normal abdominal aorta. Normal inferior vena cava. Normal retroperitoneum. Free fluid or free air Normal urinary bladder. Normal abdominal wall. No hernias, abscesses, or solid mass lesions. Old moderate compression fracture of the T12 vertebra. Marked narrowing at L4-5 intervertebral disc space. Moderate osteophytic degenerative changes of the lumbar spine. Normal pelvic bones and hips. CT/Abdomen/Pelvis WITH Contrast IMPRESSION: 1. Findings may be indicative of mild spasm in the sigmoid colon. Otherwise, no evidence of an appendicitis, diverticulitis, colitis, intestinal obstruction. 2. Small normal kidneys without obstructive uropathy. 3. Post cholecystectomy. Normal bile ducts. 4. No pancreatitis. 5. No hernias, abscesses, or solid mass lesions. 6. Old moderate compression fractures at T12 vertebra and marked narrowing of the L4-5 intervertebral disc space. There are moderate osteophytic degenerative changes of the lumbar spine. Electronically Signed: Donny Hinson MD at 18:25 EDT ,
[2021-08-23] MEDS: 0.9% Normal Saline 1,000 ML 1000 ML IV (15:33)
[2021-08-23] MEDS: Morphine 4 MG/ML Syringe IV (15:34)
[2021-08-23] MEDS: Ondansetron 4 MG/2 ML Vial IV (15:34)
[2021-08-23 15:36] LABS: Absolute Lymphocyte Count 1.19 X10^3/uL (0.83-4.51); Absolute Neutrophil Count 3.1 X10^3/uL (2.0-7.7); Basophil# 0.03 X10^3/uL; Basophil% 0.6 % (0-1); Eosinophil# 0.48 X10^3/uL; Eosinophils% 9.1 % (0-5); Hematocrit 39.9 % (37-47); Hemoglobin 13.6 g/dL (12.0-15.0); Lymphocyte # 1.19 X10^3/ul (0.83-4.51); Lymphocyte % 22.5 % (19-41); Mean Corp Hgb Conc 34.1 g/dL (32-36); Mean Corpuscular Volume 102.6 fL (81-99); Mean Platelet Vol. 10.6 fl (6.2-12.0); Monocyte# 0.47 X10^3/uL; Monocyte% 8.9 % (0-10); NRBC Flagged by Analyzer 0 % (0-5); Neutrophil # 3.11 X10^3/uL (2.7-7.7); Neutrophil % 58.5 % (47-70); Platelet Count 233 K/mm3 (150-450); RBC Distribution Width CV 12.5 % (11.6-14.6); RBC Distribution Width SD 46.8 fl (35.1-43.9); Red Blood Count 3.89 M/mm3 (4.2-5.4); White Blood Count 5.3 K/mm3 (4.4-11.0)
[2021-08-23 15:52] LABS: ALB/GLOB Ratio 1.2 RATIO (0.9-2.4); AST(SGOT) 12 U/L (15-37); Alanine Aminotransfer ALT/SGPT 15 U/L (13-56); Albumin, Serum 3.6 g/dL (3.2-5.0); Alkaline Phosphatase 73 U/L (45-117); Anion Gap 5 (5-15); BUN 12 mg/dL (7-18); BUN/Creat Ratio 10.9 RATIO (10-20); Calcium,Total 8.6 mg/dL (8.5-10.1); Chloride 108 mmol/L (98-107); EST Glomerular Filtration Rate 52 mL/min (>60); Est Glom Filt Rate - Afr Amer 63 mL/min (>60); Estimated Creatinine Clearance 45.19 ml/min; Globulin 2.9 g/dL (2.2-4.2); Glucose 91 mg/dL (74-106); Lipase 81 U/L (73-393); Protein, Total 6.5 g/dL (6.4-8.2); Sodium Level 142 mmol/L (136-145)
[2021-08-23 16:26] VITALS: BP 134/78; PULSE 66; RESP 14; O2SAT 98
[2021-08-23 18:00] VITALS: BP 124/78; PULSE 88; RESP 16; O2SAT 98
[2021-08-23 18:02] LABS: Bacteria 0 SEEN /hpf (None Seen); Mucous, Urine 0 SEEN /hpf (<or=2+)
[2021-08-23 18:09] LABS: Color, Urine Yellow (Yellow); Glucose, Dipstick Normal (Normal); Ketone-Dipstick Negative (Negative); Leukocyte Esterase-Dipstick 25 /ul (Negative); Nitrite-Dipstick Negative (Negative); Occult Blood-Urine Negative /ul (Negative); Protein-Dipstick Negative (Negative); Urine Bilirubin Dipstick Negative (Negative); Urine Clarity Clear (Clear); Urine Urobilinogen Normal (Normal); Urine pH 6.5 (5.0 - 8.0)
[2021-08-23 18:15] LABS: Red Blood Cells-Urine 0-5 SEEN /hpf (0-5); Squamous Epithelial Cells - UA 0-5 SEEN /hpf (5-10); White Blood Cells 0-5 SEEN /hpf (0-5)
[2021-08-23] MEDS: Dicyclomine 20 MG/2 ML Vial IM (18:43)
[2021-08-23 19:22] VITALS: BP 132/72; PULSE 68; RESP 18; O2SAT 98
== END 2021-08-23 19:28 | disposition home or self-care (01) ==
PROVIDERS: Emergency Provider Emergency Medicine; PCP Family Medicine; Visit Provider Emergency Medicine
DX: R10.9 Unspecified abdominal pain (principal); K21.9 Gastro-esophageal reflux disease without esophagitis; Z86.16 Personal history of COVID-19
CPT/HCPCS: 74177; 80053; 81001; 83690; 85025; 96361; 96372; 96374; 96375; 99283; J7030; Q9967; A4216; J2405

== ENCOUNTER → 2021-10-27 | Outpatient (CLI) | payer MEDICARE, SELFPAY ==
[2021-10-27 12:49] LABS: Absolute Lymphocyte Count 1.62 X10^3/uL (0.83-4.51); Absolute Neutrophil Count 2.1 X10^3/uL (2.0-7.7); Basophil# 0.03 X10^3/uL; Basophil% 0.7 % (0-1); Eosinophil# 0.24 X10^3/uL; Eosinophils% 5.6 % (0-5); Hematocrit 40.6 % (37-47); Hemoglobin 13.6 g/dL (12.0-15.0); Lymphocyte # 1.62 X10^3/ul (0.83-4.51); Lymphocyte % 37.5 % (19-41); Mean Corp Hgb Conc 33.5 g/dL (32-36); Mean Corpuscular Hgb 34.5 pg (27.0-32.0); Mean Platelet Vol. 10.7 fl (6.2-12.0); Monocyte% 6.9 % (0-10); NRBC Flagged by Analyzer 0 % (0-5); Neutrophil # 2.11 X10^3/uL (2.7-7.7); Neutrophil % 48.8 % (47-70); Platelet Count 227 K/mm3 (150-450); RBC Distribution Width CV 12.3 % (11.6-14.6); RBC Distribution Width SD 46.6 fl (35.1-43.9); Red Blood Count 3.94 M/mm3 (4.2-5.4); White Blood Count 4.3 K/mm3 (4.4-11.0)
[2021-10-27 13:10] LABS: Vitamin B12 1290 pg/mL (211-911); Vitamin D,25 Hydroxy 34.7 ng/mL
[2021-10-27 13:20] LABS: ALB/GLOB Ratio 1.2 RATIO (0.9-2.4); AST(SGOT) 11 U/L (15-37); Alanine Aminotransfer ALT/SGPT 16 U/L (13-56); Albumin, Serum 3.6 g/dL (3.2-5.0); Alkaline Phosphatase 66 U/L (45-117); Anion Gap 7 (5-15); BUN 16 mg/dL (7-18); BUN/Creat Ratio 14.8 RATIO (10-20); Calcium,Total 8.8 mg/dL (8.5-10.1); Chloride 108 mmol/L (98-107); Cholesterol 207 mg/dL (200); Creatinine, Serum 1.08 mg/dL (0.55-1.02); EST Glomerular Filtration Rate 53 mL/min (>60); Est Glom Filt Rate - Afr Amer 65 mL/min (>60); Globulin 2.9 g/dL (2.2-4.2); Glucose 88 mg/dL (74-106); High Density Lipoprotein 63 mg/dL; Potassium 4.5 mmol/L (3.5-5.1); Protein, Total 6.5 g/dL (6.4-8.2); Sodium Level 143 mmol/L (136-145); Thyroid Stim Hormone (TSH) 1.29 uIU/mL (0.358-3.74); Triglycerides 83 mg/dL; Very Low Density Lipoprotein 17 mg/dL (5-40)
== END | disposition home or self-care (01) ==
LOC: MTLAB 10:52
PROVIDERS: PCP Family Medicine; Referring Provider Family Medicine; Visit Provider Family Medicine
DX: E78.5 Hyperlipidemia, unspecified (principal); E78.1 Pure hyperglyceridemia; E55.9 Vitamin D deficiency, unspecified; Z78.9 Other specified health status; Z51.81 Encounter for therapeutic drug level monitoring
CPT/HCPCS: 36415; 80053; 80061; 82306; 82607; 84443; 85025

== ENCOUNTER → 2021-11-16 | Outpatient (CLI) | payer MEDICARE, SELFPAY ==
[2021-11-16 17:52] LABS: CRP < 2.90 mg/L (0.0-3.0)
[2021-11-18 17:07] LABS: Endomysial Antibody IgA Negative (Negative)
[2021-11-18 19:33] LABS: Immunoglobulin A 102 mg/dL (87-352); t-Transglutaminase IgA <2 U/mL (0-3)
== END | disposition home or self-care (01) ==
PROVIDERS: PCP Family Medicine; Referring Provider Internal Medicine Gastroenterology; Visit Provider Internal Medicine Gastroenterology
DX: R19.7 Diarrhea, unspecified (principal)
CPT/HCPCS: 36415; 82784; 83516; 86140; 86255

== ENCOUNTER 2022-04-12 08:56 | Day surgery (SDC) | payer MEDICARE, SELFPAY ==
[2022-04-12] VITALS (7 sets, daily range): BP systolic 102–138; BP diastolic 63–80; PULSE 65–79; RESP 16–18; TEMP 36.1–36.7; O2SAT 95–98; BMI 30.2
[2022-04-12] MEDS: Lactated Ringers 1,000 ML 15 ML IV ×2 (09:05→09:24)
--- NOTE | 2022-04-12 10:38 | OP.PCM_ITS ---
Report of Operation Date of Procedure: 04/12/22 Description of Surgical Findings:: Pre-Operative Diagnosis: Lumbosacral spondylosis, lumbosacral degenerative disc disease, lumbar facet arthropathy Post-Operative Diagnosis: Lumbosacral spondylosis, lumbosacral degenerative disc disease, lumbar facet arthropathy Description of Surgical Findings:: PROCEDURE PERFORMED:? Bilateral lumbar branch block at L4, L5, and S1. ANESTHESIA:? MAC. BLOOD LOSS:? Minimal. COMPLICATIONS:? None. DESCRIPTION OF PROCEDURE:? History and physical of today was reviewed.? Risks and benefits of the procedure were explained.? The patient understood and agreed to proceed.? Informed consent was obtained.? IV inserted per routine protocol.? The patient was taken to the operating room and placed in the prone position with a pillow positioned underneath the abdomen.? The lower back area was prepped and draped in a sterile fashion using iodine x3.? Under fluoroscopy guidance on AP view, the L4 through S1 vertebral bodies were visualized.? The skin and subcutaneous tissue was anesthetized with approximately 5 mL of 1% lid ocaine using a 25-gauge regular needle.? Under direct visualization with fluoroscopy, at approximately 25-degree angle, starting on the left L4, ending on the right L4, passing through the L5 and S1 bilaterally, using a 22-gauge 3-1/2-inch spinal needle, the needle was advanced via the skin.? The tip of the needle was maneuvered and directed towards the superior medial gutter of the transverse process at the vicinity of the medial branch.? Once tip of the needle was in contact with the bone, the needle was pulled approximately 2 mm off the bone.? After negative aspiration for blood or CSF and confirmation on AP, oblique as well as lateral view, a total of 12 mL of preservative-free 0.25% Marcaine with 80 mg of Depo-Medrol was injected in divided doses between those six levels.? The needles were then removed intact.? The patient experienced no sign or symptoms of intrathecal or intravascular injection.? The patient experienced no paresthesia.? The procedure was completed without any apparent difficulty or any complications.? The patient appeared to tolerate it well. ASSESSMENT AND PLAN:? This is a 71-year-old female with lumbosacral spondylosis, lumbosacral degenerative disc disease, lumbar facet arthropathy status post bilateral lumbar medial branch block at L4-S1, patient will continue her current medications, patient will follow approximately 1 to 2 weeks for reevaluation.
--- NOTE | 2022-04-12 10:38 | RAD_ITS ---
STUDY: X-RAY - LUMBAR SPINE REASON FOR EXAM: Female, 71 years old. MEDIAL BRANCH NERVE BLOCK L4-S1,RIGHT TECHNIQUE: 5 intraoperative view(s) of the lumbar spine were obtained. COMPARISON: None FINDINGS: 5 limited intraoperative studies performed as patient underwent right L4 and S1 nerve block. No intraoperative complications noted. RAD/L/S Spine Min 4 Views IMPRESSION: No intraoperative complications noted during right L4 and S1 nerve block Electronically Signed: Feliz Kelly MD at 19:06 EST ,
[2022-04-12] MEDS: Lidocaine 1% (5 ml sdv) 5 ML Vial (10:43)
[2022-04-12] MEDS: MethylPREDNISolone Acetate 80 MG/ML Vial (10:44)
--- NOTE | 2022-04-12 11:05 | PCM.OPRPT ---
Report of Operation Date of Procedure: 04/12/22 Description of Surgical Findings:: Pre-Operative Diagnosis: Lumbosacral spondylosis, lumbosacral degenerative disc disease, lumbar facet arthropathy Post-Operative Diagnosis: Lumbosacral spondylosis, lumbosacral degenerative disc disease, lumbar facet arthropathy PROCEDURE PERFORMED:?Right lumbar branch block at L4, L5, and S1. ANESTHESIA:? MAC. BLOOD LOSS:? Minimal. COMPLICATIONS:? None. DESCRIPTION OF PROCEDURE:? History and physical of today was reviewed.? Risks and benefits of the procedure were explained.? The patient understood and agreed to proceed.? Informed consent was obtained.? IV inserted per routine protocol.? The patient was taken to the operating room and placed in the prone position with a pillow positioned underneath the abdomen.? The lower back area was prepped and draped in a sterile fashion using iodine x3.? Under fluoroscopy guidance on AP view, the L4 through S1 vertebral bodies were visualized.? The skin and subcutaneous tissue was anesthetized with approximately 5 mL of 1% lidocaine using a 25-gauge regular needle.? Under direct visualization with fluoroscopy, at approximately 25-degree angle, starting on the right L3, ending on the right S1 passing through the L4 and L5, using a 22-gauge 3-1/2-inch spinal needle, the needle was advanced via the skin.? The tip of the needle was maneuvered and directed towards the superior medial gutter of the transverse process at the vicinity of the medial branch.? Once tip of the needle was in contact with the bone, the needle was pulled approximately 2 mm off the bone.? After negative aspiration for blood or CSF and confirmation on AP, oblique as well as lateral view, a total of 8 mL of preservative-free 0.25% Marcaine with 80 mg of Depo-Medrol was injected in divided doses between those 4 levels.? The needles were then removed intact.? The patient experienced no sign or symptoms of intrathecal or intravascular injection.? The patient experienced no paresthesia.? The procedure was completed without any apparent difficulty or any complications.? The patient appeared to tolerate it well. ASSESSMENT AND PLAN:? This is a 71-year-old female with lumbosacral spondylosis, lumbosacral degenerative disc disease, lumbar facet arthropathy status post right lumbar medial branch block at L4-S1, patient will continue her current medications, patient will follow approximately 1 to 2 weeks for reevaluation.
== END 2022-04-12 12:04 | disposition home or self-care (01) ==
LOC: SDC 08:56 → AC 08:58
PROVIDERS: PCP Family Medicine; Referring Provider Anesthesiology Pain Medicine; Visit Provider Anesthesiology Pain Medicine
PROC: 3E0S3BZ Introduction of Anesthetic Agent into Epidural Space, Percutaneous Approach (ICD-10-PCS; CPT 62322; principal; 2022-04-12 10:25)
DX: M47.816 Spondylosis without myelopathy or radiculopathy, lumbar region (principal); M47.817 Spondylosis without myelopathy or radiculopathy, lumbosacral region; M51.37 Other intervertebral disc degeneration, lumbosacral region
CPT/HCPCS: 64493; 64494; 64483; 72110; J7120

== ENCOUNTER 2022-06-28 08:15 | Day surgery (SDC) | payer MEDICARE, SELFPAY ==
[2022-06-28] MEDS: Lactated Ringers 1,000 ML 15 ML IV (08:25)
[2022-06-28 08:49] VITALS: BP 150/74; PULSE 68; RESP 16; TEMP 36.3; O2SAT 100; BMI 30.8
--- NOTE | 2022-06-28 10:06 | RAD_ITS ---
PROCEDURE: Right L4-S1 medial branch nerve block. DATE OF EXAMINATION: 06/28/2022. INDICATION: Female, 71 years old. Low back pain. RAD/L/S Spine Min 4 Views IMPRESSION: Intraoperative fluoroscopic services provided for medial branch nerve block. Electronically Signed: Kenneth Hernández MD at 14:49 EST ,
[2022-06-28] MEDS: Lidocaine 1% (5 ml sdv) 5 ML Vial (10:14)
[2022-06-28] MEDS: MethylPREDNISolone Acetate 80 MG/ML Vial (10:14)
--- NOTE | 2022-06-28 10:20 | PCM.OPRPT ---
Report of Operation Date of Procedure: 06/28/22 Description of Surgical Findings:: PREOPERATIVE DIAGNOSIS: Lumbosacral spondylosis, lumbosacral degenerative disc disease, lumbar facet arthropathy POSTOPERATIVE DIAGNOSIS: Lumbosacral spondylosis, lumbosacral degenerative disc disease, lumbar facet arthropathy PROCEDURE PERFORMED: Right-sided lumbar medial branch block at L4, L5, and S1. ANESTHESIA: MAC. BLOOD LOSS: Minimal. COMPLICATIONS: None. DESCRIPTION OF PROCEDURE: History and physical of today was reviewed. Risks and benefits of the procedure were explained. The patient understood and agreed to proceed. Informed consent was obtained. IV inserted per routine protocol. The patient was taken to the operating room and placed in the prone position with a pillow positioned underneath the abdomen. The right side of her lower back was prepped and draped in a sterile fashion using iodine x3. Under fluoroscopy on oblique view, the L3 through S1 vertebral bodies were visualized. The skin and subcutaneous tissue was anesthetized with approximately 5 mL of 1% lidocaine using a 25-gauge regular needle. Under direct visualization with fluoroscopy, at approximately 25-degree angle starting on the right_ L3, ending on the _right S1, passing through the L4 and L5, using a 22-gauge 3-1/2-inch spinal needle, the needle was advanced via the skin. The tip of the needle was maneuvered and directed towards the superior medial gutter of the transverse process at the vicinity of the medial branch. Once tip of the needle was in contact with the bone, the needle was pulled approximately 2 mm off the bone. After negative aspiration of blood or CSF and confirmation on AP as well as oblique view, a total of 8 mL of preservative-free 0.25% Marcaine was injected in divided doses between those four levels. The needles were then removed intact. The patient experienced no sign or symptoms of intrathecal or intravascular injection. The patient experienced no paresthesia. The procedure was completed without any apparent difficulty or any complications. The patient appeared to tolerate it well. ASSESSMENT AND PLAN: This is a 71-year-old female with lumbosacral spondylosis, lumbosacral degenerative disc disease, lumbar facet arthropathy status post right-sided lumbar medial branch block at L4-S1, patient will continue current medications, patient will follow in approximately 1 week for reevaluation.
[2022-06-28 10:25] VITALS: BP 104/63; BP 150/74; PULSE 66; RESP 16; TEMP 37.1; O2SAT 97
[2022-06-28 10:30] VITALS: BP 124/70; BP 150/74; PULSE 65; RESP 16; O2SAT 94
[2022-06-28 10:35] VITALS: BP 127/70; BP 150/74; PULSE 64; RESP 16; O2SAT 94
[2022-06-28 10:40] VITALS: BP 144/77; BP 150/74; PULSE 64; RESP 16; TEMP 36.7; O2SAT 99
== END 2022-06-28 11:08 | disposition home or self-care (01) ==
LOC: SDC 08:19 → AC 08:20
PROVIDERS: PCP Family Medicine; Referring Provider Anesthesiology Pain Medicine; Visit Provider Anesthesiology Pain Medicine
PROC: 3E0S3BZ Introduction of Anesthetic Agent into Epidural Space, Percutaneous Approach (ICD-10-PCS; CPT 62322; principal; 2022-06-28 09:45)
DX: M47.817 Spondylosis without myelopathy or radiculopathy, lumbosacral region (principal); M46.96 Unspecified inflammatory spondylopathy, lumbar region; M51.37 Other intervertebral disc degeneration, lumbosacral region; K21.9 Gastro-esophageal reflux disease without esophagitis; Z86.16 Personal history of COVID-19; Z86.711 Personal history of pulmonary embolism; Z79.899 Other long term (current) drug therapy
CPT/HCPCS: 64493; 64494; 01992; 64483; 72100; 72110; J7120

== ENCOUNTER 2022-10-11 06:58 | Day surgery (SDC) | payer MEDICARE, SELFPAY ==
[2022-10-11 07:16] VITALS: BP 126/68; PULSE 78; RESP 18; TEMP 36.3; O2SAT 94; BMI 30.8
[2022-10-11] MEDS: Lactated Ringers 1,000 ML 15 ML IV (07:24)
--- NOTE | 2022-10-11 08:18 | RAD_ITS ---
STUDY: INTRAOPERATIVE FLUOROSCOPY TECHNIQUE: The examination was performed with referring physician in attendance. Under fluoroscopic observation, fluoroscopic images were obtained. Radiologist was not present for the study. Radiologist did not perform the procedure. This dictation is for documentation of the radiation dosage only. There is no interpretation of the images. TOTAL NUMBER OF IMAGES: 8 COMPARISON: None RADIATION DOSE: 6.3 mGy FLUOROSCOPY TIME: 27.6 seconds REASON FOR EXAM: RADIO FREQ ABLATION L4-S1, RIGHT Female, 72 years old. FINDINGS: Images of the lumbar spine. Kiana noted from L3 to S1. Injection of contrast noted. RAD/Lumbar Spine 2 or 3 Views IMPRESSION: Fluoroscopic assistance images were obtained. Dictation for documentation purposes only. Electronically Signed: Tyrel Salinas MD at 20:39 EDT ,
[2022-10-11] MEDS: MethylPREDNISolone Acetate 40 MG/ML Vial IM (08:27)
[2022-10-11] MEDS: Lidocaine 1% (30 ml sdv) 30 ML Vial (08:27)
--- NOTE | 2022-10-11 08:41 | PCM.OPRPT ---
Report of Operation Date of Procedure: 10/11/22 Pre-Operative Diagnosis: Lumbosacral spondylosis, lumbosacral degenerative disc disease, lumbar facet arthropathy Post-Operative Diagnosis: Lumbosacral spondylosis, lumbosacral degenerative disc disease, lumbar facet arthropathy Surgery/Procedure Performed:: Right-sided lumbar radiofrequency ablation of the medial branch L4, L5, S1 Type of Anesthesia: MAC Estimated Blood Loss (mL): Minimal Description of Procedure: History and physical today was reviewed. Risks and benefits of procedure explained. The patient understood, agreed to the procedure and informed consent was obtained. IV inserted per routine protocol. The patient was taken to the operating room, placed in the prone position with a pillow positioned underneath the abdomen. The right side of the lower back was prepped and draped in a sterile fashion using iodine x 3. Under fluoroscopy guidance, on an oblique view, the L3 through S1 vertebral bodies were visualized. The skin and subcutaneous tissue was anesthetized with approximately 10 mL of 1% lidocaine using a 25-gauge regular needle. Under direct visualization with fluoroscopy at approximately 25-degree angle, starting on the right L3, ending on the right S1 passing through the L4-L5 using a 20-gauge 15 cm with a 10 mm curved active tip radiofrequency ablation needle the needle passed through the skin. The tip of the needle was maneuvered and directed towards the superior and medial gutter of the transverse process at the vicinity of the medial branch. Once the tip of the needle was in contact with the bone, the needle pulled approximately 2 mm up the bone. The stylet of each needle was then removed. After negative aspiration of blood with CSF and confirmation of AP as well as oblique view, radiofrequency ablation probe was then inserted at each level. Impedance was then recorded at L3 to be 317, at L4 246, at L5 335, at S1 286 ohm. Motor-evoked potential was then initiated to 1.5 volt without any motor response at each corresponding level. The probe was then removed intact and a total of 6 mL preservative-free 1% lidocaine was injected in divided doses between those 4 levels after negative aspiration of blood with CSF. The radiofrequency ablation probe was then reinserted after confirmation of AP, oblique as well as lateral view. Radiofrequency ablation was then initiated to 80 degrees Celsius for 90 seconds at each level. Once concluded, the probe was then removed intact and a total of 6 mL of preservative-free 0.25% Marcaine with 40 mg Depo-Medrol was injected in divided doses between those 4 levels. The needles were then removed intact. The patient experienced no signs or symptoms of intrathecal, intravascular injection. The patient experienced no paraesthesia. The procedure was completed without any apparent difficulty, any complication. The patient appeared to tolerate well. Sensory as well as motor exam was unchanged from prior to procedure. ASSESSMENT AND PLAN: This is a 72-year-old female with lumbosacral spondylosis, lumbosacral degenerative disc disease, lumbar facet arthropathy, status post right-sided radiofrequency ablation of the medial branch L4 through S1. The patient will continue her current medications. The patient will follow up in approximately 2 weeks for reevaluation. Complications None
[2022-10-11 08:45] VITALS: BP 105/73; BP 126/68; PULSE 72; RESP 16; TEMP 36.1; O2SAT 97
[2022-10-11 08:50] VITALS: BP 125/97; BP 126/68; PULSE 72; RESP 16; O2SAT 99
[2022-10-11 08:55] VITALS: BP 121/69; BP 126/68; PULSE 70; RESP 16; O2SAT 99
[2022-10-11 09:00] VITALS: BP 123/71; BP 126/68; PULSE 72; RESP 16; TEMP 36.1; O2SAT 97
[2022-10-11 09:08] VITALS: BP 126/68
== END 2022-10-11 09:18 | disposition home or self-care (01) ==
LOC: SDC 07:03 → AC 07:04
PROVIDERS: PCP Family Medicine; Referring Provider Anesthesiology Pain Medicine; Visit Provider Anesthesiology Pain Medicine
PROC: (CPT 64635; principal; 2022-10-11 08:25)
DX: M47.817 Spondylosis without myelopathy or radiculopathy, lumbosacral region (principal); M46.96 Unspecified inflammatory spondylopathy, lumbar region; M51.37 Other intervertebral disc degeneration, lumbosacral region; K21.9 Gastro-esophageal reflux disease without esophagitis; K58.9 Irritable bowel syndrome, unspecified; Z79.899 Other long term (current) drug therapy
CPT/HCPCS: 64635; 64636; 01992; 72100; 76000; J7120

== ENCOUNTER 2022-11-20 13:18 | Emergency (ER) | payer MEDICARE, SELFPAY ==
[2022-11-20 13:18] VITALS: BP 128/87; PULSE 96; RESP 18; TEMP 36.6; O2SAT 97; BMI 29.8
--- NOTE | 2022-11-20 13:55 | EDS_ITS ---
HPI <JYOTI Be - Last Filed: 11/20/22 15:08> History of Present Illness Chief Complaint: Cough Narrative Narrative: 72-year-old female has had a productive cough for a week and a half. She has had no other symptoms and denies fever chills chest pain or shortness of breath. She went to urgent care and was prescribed steroids and Tessalon Perles but after taking them for 3 days they did not help. She went to see her PCP who prescribed doxycycline which she took for 2 days but the cough will not go away. Her rib cage hurts from coughing. Denies smoking. PFS <JYOTI Be - Last Filed: 11/20/22 15:08> [facility] Medical History Acute bronchitis, unspecified Alcohol use Arthritis Back problem Community acquired pneumonia COVID-19 Easy bruising Gastric reflux Heartburn History of hiatal hernia History of IBS Nasal polyps Nausea & vomiting Non-smoker Post-menopausal Pulmonary embolism URI (upper respiratory infection) Wears glasses Home Medications alendronate 70 mg tablet 70 mg PO FR bones 02/18/20 [History Last Taken 02/08/20] cholecalciferol (vitamin D3) 50 mcg (2,000 unit) capsule 2,000 unit PO DAILY supplement 02/18/20 [History Last Taken 02/17/20] colestipol 1 gram tablet 1 g PO DAILY 02/18/20 [History Last Taken 02/16/20] cyanocobalamin (vitamin B-12) 2,500 mcg tablet 2,500 mcg PO DAILY supplement 02/18/20 [History Last Taken 02/17/20] zinc 50 mg tablet 50 mg PO DAILY 10/13/20 [History Last Taken Unknown] dicyclomine 10 mg capsule 20 mg PO TIDAC PRN Pain 04/07/22 [History Last Taken Unknown] pantoprazole 40 mg tablet,delayed release 40 mg PO DAILY 04/07/22 [History Last Taken 10/11/22] benzonatate 200 mg capsule 200 mg PO TID PRN cough #20 caps 10/02/22 [Rx Last Taken Unknown] benzonatate 200 mg capsule 200 mg PO TID PRN cough #20 caps 11/16/22 [Rx Last Taken Unknown] methylprednisolone 4 mg tablets in a dose pack (Medrol (Paul)) See Rx Instructions PO PER PKG DIR #21 tabs 11/16/22 [Rx Last Taken Unknown] albuterol sulfate 90 mcg/actuation breath activated powder inhaler 2 inh inhalation Q4H PRN shortness of breath or wheezing #1 ea 11/20/22 [Rx Last Taken Unknown] Allergy/AdvReac Type Severity Reaction Status Date / Time apixaban [From Eliquis] Allergy Mild Itching Verified 11/20/22 13:21 cat dander Allergy Mild Itching Verified 11/20/22 13:21 dog dander Allergy Mild Itching Verified 11/20/22 13:21 grass pollen Allergy Mild Itching Verified 11/20/22 13:21 Family History Mother Colon cancer Father Myocardial infarction Hypertension Grandmother Arthritis Surgical History History of cholecystectomy Hx of tonsillectomy S/P nasal polypectomy Social History household members: spouse housing: house Smoking Status: Never smoker alcohol intake: current alcohol intake frequency: a few times a week what type of physical activity do you participate in: none do you feel safe at home: Yes ROS <JYOTI Be - Last Filed: 11/20/22 15:08> ROS ED ROS Narrative Constitutional: Negative for fever, chills, malaise. ENT: Negative for sore throat, ear pain, rhinorrhea. CVS: Negative for palpitations, chest pain,. Respiratory: Positive for cough. Negative for shortness of breath, orthopnea. GI: Negative for abdominal pain, nausea, vomiting, diarrhea. EXAM <JYOTI Be - Last Filed: 11/20/22 15:08> Physical Exam Narrative Exam Narrative: CONST: Patient sitting in no acute distress. EYES: Normal inspection. NECK: Normal inspection. RESP: No respiratory distress, CTAB. CVS: Regular rate and rhythm, no murmur, no gallop. ABD: Soft and nontender, no guarding or rebound, nondistended. SKIN: Color normal, no rash, warm, dry, intact. EXTREMITIES: Normal appearance, no pedal edema. NEURO: Oriented x4. PSYCH: Normal affect. Const Vital Signs: 11/20/22 13:18 11/20/22 14:22 Temperature 98 F Temperature Source Temporal Pulse Rate 96 Respiratory Rate 18 Respiratory Effort Normal Non-Labored Respiratory Depth Normal Respiratory Pattern Normal Blood Pressure 128/87 H Blood Pressure Mean 100 Pulse Ox 97 Oxygen Delivery Method Room Air <Sinan Ferreira MD - Last Filed: 11/20/22 15:15> Physical Exam Const Vital Signs: 11/20/22 13:18 11/20/22 14:22 Temperature 98 F Temperature Source Temporal Pulse Rate 96 Respiratory Rate 18 Respiratory Effort Normal Non-Labored Respiratory Depth Normal Respiratory Pattern Normal Blood Pressure 128/87 H Blood Pressure Mean 100 Pulse Ox 97 Oxygen Delivery Method Room Air MDM <JYOTI eB - Last Filed: 11/20/22 15:08> [facility] Narrative Medical decision making narrative: History gathered from: Patient and spouse Patient presents with a week and half of productive cough. She has been on doxycycline for 2 days but is concerned the cough is causing her chest muscles to be sore and is not going away. She appears well and nontoxic. Vital signs within normal limits. She speaking full sentences in no distress and is 97% on room air. Heart is regular and lungs are clear. CXR showed questionable developing right-sided infiltrate. She has been on doxycycline for 2 days and should continue this and I prescribed an albuterol inhaler. She was discharged in stable condition. Differential: Bronchitis, pneumonia Radiography Diagnostic Testing: Clinical Impression(s) from Imaging Studies Chest X-Ray 11/20/22 14:19 IMPRESSION: Indeterminate ill-defined nodular opacities within the right lower lung which may be secondary to confluence of shadows however cannot exclude an evolving infectious process, consider chest CT for further evaluation. Electronically Signed: Chel Monroe MD at 14:34 EDT , ED attending interpretation of 2 view chest x-ray shows possible slight patchiness right lower lung. <Sinan Ferreira MD - Last Filed: 11/20/22 15:15> [facility] Narrative Medical decision making narrative: History gathered from: Patient and spouse Patient presents with a week and half of productive cough. She has been on doxycycline for 2 days but is concerned the cough is causing her chest muscles to be sore and is not going away. She appears well and nontoxic. Vital signs within normal limits. She speaking full sentences in no distress and is 97% on room air. Heart is regular and lungs are clear. CXR showed questionable developing right-sided infiltrate. She has been on doxycycline for 2 days and should continue this and I prescribed an albuterol inhaler. She was discharged in stable condition. Differential: Bronchitis, pneumonia Dr. Ferreira: I have personally performed a face to face assessment of the patient and have reviewed the TARAN Note. I performed a substantive portion of the visit including all aspects of the following. My munguia findings include: History is 1.5 weeks of cough. Started on doxycycline 2 days ago. Exam is afebrile. Vital signs noted. Regular rate and rhythm. Lungs clear to auscultation bilaterally, with cough on examination. Rare expiratory wheeze right base. Abdomen soft and nontender. Medical Decision Making: Check chest x-ray. Chest x-ray interpreted by myself shows no absolute consolidation. I reviewed the radiology report which states there may be indeterminant ill-defined opacities in the right lower lobe consistent with confluence of shadows versus infection. Patient is already taking antibiotics. I do not feel that this will necessarily change the course of therapy. She will be given an albuterol MDI prescription to use every 4-6 hours as needed for coughing jags or shortness of breath. I do not feel she requires laboratory work or observation/admission. I feel she be discharged safely home with follow-up to her primary care physician. Return instructions were reviewed. Disposition is discharged home in stable condition. Other additions or changes: [None] Radiography Diagnostic Testing: Clinical Impression(s) from Imaging Studies Chest X-Ray 11/20/22 14:19 IMPRESSION: Indeterminate ill-defined nodular opacities within the right lower lung which may be secondary to confluence of shadows however cannot exclude an evolving infectious process, consider chest CT for further evaluation. Electronically Signed: Chel Monroe MD at 14:34 EDT , Discharge Plan Triage Chief Complaint: Cough ED Midlevel Provider: Gloria Hernández ED Provider: Sinan Ferreira Dx/Rx/DC Orders Clinical Impression: Pneumonia Instructions: ED Bronchitis, No Antibiotic (Adult) Prescriptions: New albuterol sulfate 90 mcg/actuation aerosol powdr breath activated 2 inh inhalation Q4H PRN (Reason: shortness of breath or wheezing) Qty: 1 0RF Rx Instructions: standard albuterol inhaler whatever is in stock No Action zinc 50 mg tablet 50 mg PO DAILY benzonatate 200 mg capsule 200 mg PO TID PRN (Reason: cough) Qty: 20 0RF benzonatate 200 mg capsule 200 mg PO TID PRN (Reason: cough) Qty: 20 0RF methylprednisolone [Medrol (Paul)] 4 mg tablets,dose pack See Rx Instructions PO PER PKG DIR Qty: 21 0RF Rx Instructions: PO PER PKG DIR alendronate 70 MG tablet 70 mg PO FR colestipol 1 gram tablet 1 g PO DAILY Patient Comments: TAKE 2 TABLETS BY MOUTH ONCE DAILY PRIOR TO MEAL cholecalciferol (vitamin D3) 2,000 UNIT capsule 2,000 unit PO DAILY cyanocobalamin (vitamin B-12) 2,500 MCG tablet 2,500 mcg PO DAILY pantoprazole 40 mg tablet,delayed release (DR/EC) 40 mg PO DAILY Patient Comments: TAKE 1 TABLET BY MOUTH ONCE DAILY dicyclomine 10 MG capsule 20 mg PO TIDAC PRN (Reason: Pain) Primary Care Provider: Luiz Gomez Referrals: Luiz Gomez DO [Primary Care Provider] - Activity Restrictions/Additional Instructions: The chest x-ray showed possibly developing pneumonia. Continue doxycycline and I prescribed an albuterol inhaler you can use every 4 hours as needed. Disposition Disposition: Home, Self Care Discharge Date/Time: 11/20/22 14:59
--- NOTE | 2022-11-20 14:19 | RAD_ITS ---
INDICATION: cough EXAMINATION/TECHNIQUE: X-RAY - XR Chest 2 Views COMPARISON: Prior study dated: February 18, 2020 FINDINGS: LINES/DEVICES: None. LUNGS: There are few ill-defined nodular opacities within the right lower lung. No pneumothorax. MEDIASTINUM AND CARDIOVASCULAR STRUCTURES: Cardiac silhouette not enlarged. Central airways and mediastinal contour are unremarkable. BONES AND SOFT TISSUES: Unremarkable. RAD/Chest PA and Lateral IMPRESSION: Indeterminate ill-defined nodular opacities within the right lower lung which may be secondary to confluence of shadows however cannot exclude an evolving infectious process, consider chest CT for further evaluation. Electronically Signed: Chel Monroe MD at 14:34 EDT ,
[2022-11-20] MEDS: Lidocaine 5% Patch 1 PATCH TOPICAL (14:30)
== END 2022-11-20 14:59 | disposition home or self-care (01) ==
PROVIDERS: Emergency Provider Emergency Medicine; PCP Family Medicine; Visit Provider Emergency Medicine
DX: J18.9 Pneumonia, unspecified organism (principal); Z86.16 Personal history of COVID-19; Z86.711 Personal history of pulmonary embolism
CPT/HCPCS: 71046; 99283

== ENCOUNTER → 2023-01-11 | Outpatient (CLI) | payer MEDICARE, SELFPAY ==
[2023-01-11 12:30] LABS: Basophil# 0.04 X10^3/uL; Eosinophil# 0.29 X10^3/uL; Eosinophils% 7.1 % (0-5); Hematocrit 39.8 % (37-47); Hemoglobin 13.1 g/dL (12.0-15.0); Lymphocyte % 34.5 % (19-41); Mean Corp Hgb Conc 32.9 g/dL (32-36); Mean Corpuscular Hgb 35.1 pg (27.0-32.0); Mean Corpuscular Volume 106.7 fL (81-99); Mean Platelet Vol. 10.1 fl (6.2-12.0); Monocyte# 0.31 X10^3/uL; Monocyte% 7.6 % (0-10); NRBC Flagged by Analyzer 0 % (0-5); Neutrophil # 2.01 X10^3/uL (2.7-7.7); Neutrophil % 49.6 % (47-70); Platelet Count 278 K/mm3 (150-450); RBC Distribution Width SD 50.7 fl (35.1-43.9); Red Blood Count 3.73 M/mm3 (4.2-5.4); White Blood Count 4.1 K/mm3 (4.4-11.0)
[2023-01-11 12:59] LABS: ALB/GLOB Ratio 1.2 RATIO (0.9-2.4); AST(SGOT) 15 U/L (15-37); Alanine Aminotransfer ALT/SGPT 16 U/L (13-56); Albumin, Serum 3.6 g/dL (3.2-5.0); Alkaline Phosphatase 88 U/L (45-117); Anion Gap 6 (5-15); BUN 16 mg/dL (7-18); Calcium,Total 8.9 mg/dL (8.5-10.1); Chloride 109 mmol/L (98-107); Cholesterol 241 mg/dL (200); Creatinine, Serum 1.07 mg/dL (0.55-1.02); EST Glomerular Filtration Rate 54 mL/min (>60); Est Glom Filt Rate - Afr Amer 65 mL/min (>60); Globulin 3.1 g/dL (2.2-4.2); Glucose 97 mg/dL (74-106); High Density Lipoprotein 69 mg/dL; Potassium 3.9 mmol/L (3.5-5.1); Protein, Total 6.7 g/dL (6.4-8.2); Sodium Level 143 mmol/L (136-145); Triglycerides 142 mg/dL; Very Low Density Lipoprotein 28 mg/dL (5-40)
[2023-01-11 14:42] LABS: Vitamin D,25 Hydroxy 27.1 ng/mL
== END | disposition home or self-care (01) ==
LOC: BFHLAB 11:08
PROVIDERS: PCP Family Medicine; Referring Provider Family Medicine; Visit Provider Family Medicine
DX: N18.31 Chronic kidney disease, stage 3a (principal); E78.5 Hyperlipidemia, unspecified; E55.9 Vitamin D deficiency, unspecified
CPT/HCPCS: 36415; 80053; 80061; 82306; 85025

== ENCOUNTER → 2023-09-29 | Outpatient (CLI) | payer MEDICARE, SELFPAY ==
--- NOTE | 2023-09-29 15:44 | MRI_ITS ---
EXAM: MR LUMBAR SPINE WITHOUT INTRAVENOUS CONTRAST CLINICAL INDICATION: pain TECHNIQUE: Multiplanar and multisequence MR images of the lumbar spine without intravenous contrast. COMPARISON: MR Lumbar Spine dated 10/27/2020 FINDINGS: VERTEBRAE: Alignment of the lumbar vertebral bodies is normal. Inferior endplate deformity of the T12 vertebral body again seen related to remote injury. Lumbar vertebral body heights are intact. Normal lumbar lordosis. SPINAL CORD: Normal. Normal position and signal intensity of the conus medullaris. SOFT TISSUES: Posterior paraspinal musculature appears mild to moderately atrophic. Paraspinal soft tissues are otherwise unremarkable DISCS/SPINAL CANAL/NEURAL FORAMINA: L1-L2: Mild disc space narrowing and desiccation. Stable circumferential bulging without spinal stenosis. Intact neural foramina. L2-L3: Mild disc space narrowing and desiccation. Mild disc bulging without impingement on the spinal canal. Intact neural foramina. L3-L4: Moderate disc space narrowing and desiccation. Minor disc bulging without impingement on the spinal canal. Intact neural foramina. L4-L5: Moderate disc space narrowing and desiccation. Mild right posterior lateral disc protrusion and facet arthropathy results in moderate narrowing of the right neural foramen no spinal or significant left neural foraminal narrowing. L5-S1: Mild disc space narrowing and desiccation mild right posterior lateral disc protrusion without impingement on the spinal canal. Intact neural foramina. MRI/Spine Lumbar (Routine) IMPRESSION: 1. Right posterolateral L4-5 disc protrusion causing moderate narrowing of the right neural foramen. 2. Stable multilevel disc degeneration. Electronically Signed: Jason Marte MD at 9:14 EDT ,
== END | disposition home or self-care (01) ==
LOC: MRI 15:40
PROVIDERS: PCP Family Medicine; Referring Provider Orthopaedic Surgery; Visit Provider Orthopaedic Surgery
DX: M51.36 Other intervertebral disc degeneration, lumbar region (principal)
CPT/HCPCS: 72148

== ENCOUNTER → 2024-01-19 | Outpatient (CLI) | payer MEDICARE, SELFPAY ==
[2024-01-19 17:50] LABS: Absolute Lymphocyte Count 1.54 X10^3/uL (0.83-4.51); Absolute Neutrophil Count 3.8 X10^3/uL (2.0-7.7); Basophil# 0.03 X10^3/uL; Basophil% 0.5 % (0-1); Eosinophil# 0.26 X10^3/uL; Eosinophils% 4.2 % (0-5); Hematocrit 39.8 % (37-47); Hemoglobin 13.1 g/dL (12.0-15.0); Lymphocyte # 1.54 X10^3/ul (0.83-4.51); Lymphocyte % 24.9 % (19-41); Mean Corp Hgb Conc 32.9 g/dL (32-36); Mean Corpuscular Hgb 33.9 pg (27.0-32.0); Mean Corpuscular Volume 102.8 fL (81-99); Mean Platelet Vol. 11.2 fl (6.2-12.0); Monocyte# 0.52 X10^3/uL; Monocyte% 8.4 % (0-10); NRBC Flagged by Analyzer 0 % (0-5); Neutrophil # 3.81 X10^3/uL (2.7-7.7); Neutrophil % 61.7 % (47-70); Platelet Count 243 K/mm3 (150-450); RBC Distribution Width CV 12.2 % (11.6-14.6); RBC Distribution Width SD 45.8 fl (35.1-43.9); Red Blood Count 3.87 M/mm3 (4.2-5.4); White Blood Count 6.2 K/mm3 (4.4-11.0)
[2024-01-19 18:02] LABS: ALB/GLOB Ratio 1.3 RATIO (0.9-2.4); AST(SGOT) 15 U/L (15-37); Alanine Aminotransfer ALT/SGPT 13 U/L (13-56); Albumin, Serum 3.9 g/dL (3.2-5.0); Alkaline Phosphatase 75 U/L (45-117); Anion Gap 5 (5-15); BUN 20 mg/dL (7-18); BUN/Creat Ratio 14.5 RATIO (10-20); Calcium,Total 9.4 mg/dL (8.5-10.1); Chloride 107 mmol/L (98-107); Cholesterol 241 mg/dL (200); Creatinine, Serum 1.38 mg/dL (0.55-1.02); EST Glomerular Filtration Rate 40 mL/min (>60); Est Glom Filt Rate - Afr Amer 48 mL/min (>60); Globulin 3.1 g/dL (2.2-4.2); Glucose 103 mg/dL (74-106); High Density Lipoprotein 69 mg/dL; Potassium 4.4 mmol/L (3.5-5.1); Sodium Level 140 mmol/L (136-145); Triglycerides 194 mg/dL; Very Low Density Lipoprotein 39 mg/dL (5-40)
== END | disposition home or self-care (01) ==
LOC: BFHLAB 15:03
PROVIDERS: PCP Family Medicine; Visit Provider Family Medicine
DX: N18.31 Chronic kidney disease, stage 3a (principal); M85.80 Other specified disorders of bone density and structure, unspecified site; E78.1 Pure hyperglyceridemia
CPT/HCPCS: 36415; 80053; 80061; 82306; 85025

== ENCOUNTER → 2024-03-21 | Outpatient (CLI) | payer MEDICARE, SELFPAY ==
--- NOTE | 2024-03-21 11:17 | US_ITS ---
STUDY: SUPERFICIAL ULTRASOUND - REASON FOR EXAM: Female, 73 years old. localized swelling, lt supraclavicular area TECHNIQUE: A superficial ultrasound was performed with real-time and static tan-scale imaging. COMPARISON: FINDINGS: Images over the area of concern in the left supraclavicular region demonstrating no obvious mass or collection. No appreciable subcutaneous edema. US/Other Unlisted US Procedure IMPRESSION: No identifiable mass or collection in the area concern. Electronically Signed: Luiz Guajardo DO at 9:30 EST ,
== END | disposition home or self-care (01) ==
LOC: US 11:15
PROVIDERS: PCP Family Medicine; Referring Provider Family Medicine; Visit Provider Family Medicine
DX: R22.1 Localized swelling, mass and lump, neck (principal)
CPT/HCPCS: 76999

== ENCOUNTER → 2024-07-05 | Outpatient (CLI) | payer MEDICARE, SELFPAY ==
--- NOTE | 2024-07-05 14:49 | CT_ITS ---
PROCEDURE: SINUS/FACIAL BONE REASON FOR EXAM: Polyps were removed. Cough and nasal drainage. TECHNIQUE: CT of the paranasal sinuses without contrast. COMPARISON: None. FINDINGS: Frontal: Frontal sinuses and frontoethmoidal recesses appear clear. Ethmoid: Partial opacification of the ethmoid sinuses. Sphenoid: Sphenoid sinuses and sphenoethmoidal recesses appear clear. Maxillary: Partial opacification along the inferior aspects of both maxillary sinuses. Turbinates: Unremarkable. Nasal Septum: Midline. No large nasal septal spur. Mastoids/Middle Ears: Clear at visualized levels. Visualized intracranial structures are unremarkable. No suspicious contrast enhancement. CT/Sinus/Facial Bone IMPRESSION: Partial opacification of the ethmoid sinuses in the maxillary sinuses. One or more dose reduction techniques were used (e.g., Automated exposure contr ol, adjustment of the mA and/or kV according to patient size, use of iterative reconstruction technique). Reading Location: [id number]
== END | disposition home or self-care (01) ==
PROVIDERS: PCP Family Medicine; Referring Provider Family Medicine; Visit Provider Family Medicine
DX: J32.9 Chronic sinusitis, unspecified (principal)
CPT/HCPCS: 70486

== ENCOUNTER → 2024-09-10 | Outpatient (CLI) | payer MEDICARE, SELFPAY ==
--- NOTE | 2024-09-10 07:29 | MRI_ITS ---
PROCEDURE: SPINE LUMBAR (ROUTINE) 09/10/2024 REASON FOR EXAM: PAIN TECHNIQUE: Multiplanar and multisequence images were obtained without IV contrast administration. COMPARISON: 09/29/2023 FINDINGS: No lumbar compression deformity. Again seen is irregularity involving the inferior endplate of T12. Abdominal aorta exhibits normal caliber. No paravertebral masses are seen. L1-L2 and L2-L3 exhibit no central or foraminal stenosis. L3-4 demonstrates minimal concentric disc bulging without nerve root impingement At L4-5 there is mild concentric annular bulging with inferior foraminal narrowing on the right side. Similar to the prior study. At L5-S1 there is disc dehydration without central or foraminal compromise. MRI/Spine Lumbar (Routine) IMPRESSION: Similar findings to the prior study Reading Location: [facility]
== END | disposition home or self-care (01) ==
PROVIDERS: PCP Family Medicine; Referring Provider Orthopaedic Surgery Orthopaedic Surgery of the Spine; Visit Provider Orthopaedic Surgery Orthopaedic Surgery of the Spine
DX: M54.16 Radiculopathy, lumbar region (principal); M51.362 Other intervertebral disc degeneration, lumbar region with discogenic back pain and lower extremity pain
CPT/HCPCS: 72148

== ENCOUNTER → 2025-02-08 | Outpatient (CLI) | payer MEDICARE, SELFPAY ==
[2025-02-08 12:17] LABS: Hematocrit 40.7 % (37-47); Hemoglobin 13.6 g/dL (12.0-15.0); Immature Granulocytes Count 0.010 X10^3/uL (0.0-0.0); Mean Corp Hgb Conc 33.4 g/dL (32-36); Mean Corpuscular Volume 104.6 fL (81-99); Mean Platelet Vol. 11.0 fl (6.2-12.0); NRBC Flagged by Analyzer 0 % (0-5); Platelet Count 243 K/mm3 (150-450); RBC Distribution Width CV 12.7 % (11.6-14.6); RBC Distribution Width SD 48.8 fl (35.1-43.9); Red Blood Count 3.89 M/mm3 (4.2-5.4); White Blood Count 5.3 K/mm3 (4.4-11.0)
[2025-02-08 13:05] LABS: AST(SGOT) 17 U/L (<=31); Alanine Aminotransfer ALT/SGPT 10 U/L (<=34); Albumin, Serum 3.9 g/dL (3.4-4.8); Alkaline Phosphatase 77 U/L (35-104); Anion Gap 17 (5-15); BUN 22 mg/dL (4-19); BUN/Creat Ratio 16.6 RATIO (10-20); Calcium,Total 9.3 mg/dL (7.6-11.0); Carbon Dioxide 20.6 mmol/L (21.0-32.0); Chloride 105 mmol/L (98-108); Cholesterol 263 mg/dL (<=200); Globulin 2.4 g/dL (2.2-4.2); Glucose 93 mg/dL (70-99); Low Density Lipoprotein Calc. 153 mg/dL; Potassium 4.3 mmol/L (3.3-5.1); Triglycerides 222 mg/dL; Very Low Density Lipoprotein 44 mg/dL (5-40); Vitamin D,25 Hydroxy 49.6 ng/mL (30-100); cholesterol:hdl ratio screen 4.03
== END | disposition home or self-care (01) ==
LOC: MTLAB 09:58
PROVIDERS: PCP Family Medicine; Referring Provider Family Medicine; Visit Provider Family Medicine
DX: E78.5 Hyperlipidemia, unspecified (principal); N18.31 Chronic kidney disease, stage 3a; M85.80 Other specified disorders of bone density and structure, unspecified site; E55.9 Vitamin D deficiency, unspecified
CPT/HCPCS: 36415; 80053; 80061; 82306; 85025

== ENCOUNTER → 2025-04-11 | Outpatient (CLI) | payer MEDICARE, SELFPAY ==
--- NOTE | 2025-04-11 15:50 | CT_ITS ---
PROCEDURE: SINUS/FACIAL BONE 04/11/2025 REASON FOR EXAM: CHRONIC SINUSITIS TECHNIQUE: Procedure Code: CTSI Modality: CT Procedure: SINUS/FACIAL BONE Coronal and Sagittal reconstruction series were provided. One or more dose reduction techniques were used (e.g., Automated exposure control, adjustment of the mA and/or kV according to patient size, use of iterative reconstruction technique). RADIATION DOSE SUMMARY: CTDlvol: 28.14 mGy DLP: 774.33 mGycm COMPARISON: July 05, 2024. FINDINGS: Frontal: Frontal sinuses are clear. Ethmoid: Partial opacification of the ethmoid sinuses. Sphenoid: Sphenoid sinuses clear. Maxillary: Partial opacification maxillary sinuses worse on the right side. Turbinates: Farida bullosa of both middle turbinates. Nasal Septum: Midline. Mastoids/Middle Ears: Clear. CT/Sinus/Facial Bone IMPRESSION: Partial opacification of the ethmoid sinuses as well as the maxillary sinuses r ight greater than left. Reading Location: [place] [id number]
== END | disposition home or self-care (01) ==
LOC: CT 15:44
PROVIDERS: PCP Family Medicine; Referring Provider Otolaryngology; Visit Provider Otolaryngology
DX: J32.9 Chronic sinusitis, unspecified (principal)
CPT/HCPCS: 70486

== ENCOUNTER → 2025-04-18 | Outpatient (CLI) | payer MEDICARE, SELFPAY ==
--- NOTE | 2025-04-18 11:42 | RAD_ITS ---
PROCEDURE: CHEST PA AND LATERAL 04/18/2025 REASON FOR EXAM: HEMPOTYSIS TECHNIQUE: Procedure Code: RADCXR Modality: DX Procedure: CHEST PA AND LATERAL FINDINGS: No focal consolidation. Bibasilar subsegmental atelectasis. No pleural effusion or pneumothorax. Cardiac silhouette is within normal limits. No acute fractures. RAD/Chest PA and Lateral IMPRESSION: No focal consolidation. Bibasilar subsegmental atelectasis. Reading Location: [id number]
== END | disposition home or self-care (01) ==
LOC: RAD 11:39
PROVIDERS: PCP Family Medicine; Referring Provider Otolaryngology; Visit Provider Otolaryngology
DX: R04.2 Hemoptysis (principal)
CPT/HCPCS: 71046